=== PATIENT | male | born 1995 | race African-American/Black ===

== ENCOUNTER 2017-02-04 14:06 | Emergency (ER) | payer MEDICAID ==
[2017-02-04 14:10] VITALS: BP 145/87
--- NOTE | 2017-02-04 14:27 | ER Document Report ---
ED Eye Complaint - General Chief Complaint: Eye Pain Stated Complaint: RIGHT EYE IRRITATION Time Seen by Provider: 02/04/17 14:18 Mode of Arrival: Ambulatory Information source: Patient, Relative TRAVEL OUTSIDE OF THE [place] IN LAST 30 DAYS: No - HPI Patient complains to provider of: R eye redness Onset: Yesterday - pt. with c/o R eye red and irritated - Related Data Allergies/Adverse Reactions: No Known Allergies Allergy (Verified 02/04/17 14:09) Past Medical History - General Information source: Patient, Relative - Social History Smoking Status: Current Every Day Smoker Cigarette use (# per day): Yes Chew tobacco use (# tins/day): No Smoking Education Provided: Yes Frequency of alcohol use: None Drug Abuse: None Family History: DM - Past Medical History Cardiac Medical History: Reports: Hx Hypertension Endocrine Medical History: Reports: Hx Diabetes Mellitus Type 1, Hx Diabetes Mellitus Type 2 Renal/ Medical History: Denies: Hx Peritoneal Dialysis Past Surgical History: Reports: Hx Adenoidectomy, Hx Cardiac Surgery, Hx Tonsillectomy - Immunizations Immunizations up to date: Yes Hx Diphtheria, Pertussis, Tetanus Vaccination: Yes Review of Systems - Review of Systems Constitutional: No symptoms reported EENT: See HPI, Eye discharge Cardiovascular: No symptoms reported Respiratory: No symptoms reported -: Yes All other systems reviewed and negative Physical Exam - Vital signs Vitals: Temp Pulse Resp BP Pulse Ox 98.3 F 82 14 145/87 H 100 02/04/17 14:09 02/04/17 14:09 02/04/17 14:09 02/04/17 14:09 02/04/17 14:09 - General General appearance: Appears well In distress: None - HEENT Head: Normocephalic Eyes: Other - R eye with sceral injection; L eye nl Tympanic membrane: Normal Mouth/Lips: Normal Mucous membranes: Normal Pharynx: Normal Course - Vital Signs Vital signs: Temp Pulse Resp BP Pulse Ox 98.3 F 82 14 145/87 H 100 02/04/17 14:09 02/04/17 14:09 02/04/17 14:09 02/04/17 14:09 02/04/17 14:09 Discharge - Discharge Clinical Impression: Conjunctivitis Qualifiers: Conjunctivitis type: acute Acute conjunctivitis type: unspecified Laterality: right Qualified Code(s): H10.31 - Unspecified acute conjunctivitis, right eye Condition: Stable Disposition: HOME, SELF-CARE Additional Instructions: rest, use drops as prescribed, return if worse Prescriptions: Ciprofloxacin HCl [Ciloxan 0.3% Oph Soln 2.5 ml] 1 drop OP DAILY #1 bottle Forms: Return to Work Referrals: DAWSON CEDENO MD [ACTIVE STAFF] - Follow up as needed
== END 2017-02-04 14:25 | disposition home or self-care (01) ==
LOC: ER 14:06
DX: H10.31 Unspecified acute conjunctivitis, right eye (principal); H57.11 Ocular pain, right eye; F17.210 Nicotine dependence, cigarettes, uncomplicated
CPT/HCPCS: 99283

== ENCOUNTER → 2017-06-04 | Outpatient (CLI) | payer OTHER ==
[2017-06-04 10:40] LABS: ANION GAP 12 (5-19); BLOOD UREA NITROGEN 14 mg/dL (7-20); CALCIUM 9.8 mg/dL (8.4-10.2); CARBON DIOXIDE 29 mmol/L (22-30); CHLORIDE 98 mmol/L (98-107); GLUCOSE 270 mg/dL (75-110); POTASSIUM 4.2 mmol/L (3.6-5.0); SODIUM 138.9 mmol/L (137-145)
== END ==
LOC: CCC 09:53
DX: E10.8 Type 1 diabetes mellitus with unspecified complications (principal)
CPT/HCPCS: 36415; 80048; 83036

== ENCOUNTER 2017-07-03 14:56 | Emergency (ER) | payer SELFPAY ==
[2017-07-03] MEDS ORDERED: PROMETHAZINE HCL 25 MG TABLET PO ONE (17:32)
--- NOTE | 2017-07-03 17:40 | ER Document Report ---
ED General - General Chief Complaint: Abdominal Pain Stated Complaint: ABDOMINAL PAIN,VOMITING Time Seen by Provider: 07/03/17 17:27 Mode of Arrival: Ambulatory Information source: Patient Notes: 22-year-old male presents with history of diabetes complaints of nausea vomiting since early this morning. Patient notes he is vomited about 7 times. Denies any fevers or chills. TRAVEL OUTSIDE OF THE [place] IN LAST 30 DAYS: No - HPI Onset: This morning Onset/Duration: Sudden Quality of pain: Cramping Severity: Mild Pain Level: 1 Associated symptoms: Nausea, Vomiting Exacerbated by: Denies Relieved by: Denies Similar symptoms previously: No Recently seen / treated by doctor: No - Related Data Allergies/Adverse Reactions: No Known Allergies Allergy (Verified 07/03/17 14:56) Past Medical History - Social History Smoking Status: Current Every Day Smoker Cigarette use (# per day): Yes Chew tobacco use (# tins/day): No Smoking Education Provided: No Frequency of alcohol use: None Drug Abuse: None Family History: DM Patient has suicidal ideation: No Patient has homicidal ideation: No - Past Medical History Cardiac Medical History: Reports: Hx Hypertension Endocrine Medical History: Reports: Hx Diabetes Mellitus Type 1, Hx Diabetes Mellitus Type 2 Renal/ Medical History: Denies: Hx Peritoneal Dialysis Past Surgical History: Reports: Hx Adenoidectomy, Hx Cardiac Surgery - 18, Hx Tonsillectomy - Immunizations Immunizations up to date: Yes Hx Diphtheria, Pertussis, Tetanus Vaccination: Yes Review of Systems - Review of Systems Notes: REVIEW OF SYSTEMS: CONSTITUTIONAL : Denies fever, chills, or sweats. Denies recent illness. EENT: Denies eye, ear, throat, or mouth pain or symptoms. Denies nasal or sinus congestion or discharge. Denies throat, tongue, or mouth swelling or difficulty swallowing. CARDIOVASCULAR: Denies chest pain. Denies palpitations or racing or irregular heart beat. Denies ankle edema. RESPIRATORY: Denies cough, cold, or chest congestion. Denies shortness of breath, difficulty breathing, or wheezing. GASTROINTESTINAL: Admits nausea vomiting GENITOURINARY: Denies difficulty urinating, painful urination, burning, frequency, blood in urine, or discharge. MUSCULOSKELETAL: Denies back or neck pain or stiffness. Denies joint pain or swelling. SKIN: Denies rash, lesions or sores. HEMATOLOGIC : Denies easy bruising or bleeding. LYMPHATIC: Denies swollen, enlarged glands. NEUROLOGICAL: Denies confusion or altered mental status. Denies passing out or loss of consciousness. Denies dizziness or lightheadedness. Denies headache. Denies weakness or paralysis or loss of use of either side. Denies problems with gait or speech. Denies sensory loss, numbness, or tingling. Denies seizures. PSYCHIATRIC: Denies anxiety or stress. Denies depression, suicidal ideation, or homicidal ideation. ALL OTHER SYSTEMS REVIEWED AND NEGATIVE. Dictation was performed using [employer] recognition software PHYSICAL EXAMINATION: GENERAL: Well-appearing, well-nourished and in no acute distress. HEAD: Atraumatic, normocephalic. EYES: Pupils equal round and reactive to light, extraocular movements intact, sclera anicteric, conjunctiva are normal. ENT: Nares patent, oropharynx clear without exudates. Moist mucous membranes. NECK: Normal range of motion, supple without lymphadenopathy LUNGS: Breath sounds clear to auscultation bilaterally and equal. No wheezes rales or rhonchi. HEART: Regular rate and rhythm without murmurs ABDOMEN: Soft, mild epigastric tenderness no rebound no guarding Musculoskeletal: Normal range of motion, no pitting or edema. No cyanosis. NEUROLOGICAL: Cranial nerves grossly intact. Normal speech, normal gait. Normal sensory, motor exams PSYCH: Normal mood, normal affect. SKIN: Warm, Dry, normal turgor, no rashes or lesions noted. Physical Exam - Vital signs Vitals: Temp Pulse Resp BP Pulse Ox 98.6 F 87 16 140/89 H 100 07/03/17 15:10 07/03/17 15:10 07/03/17 15:10 07/03/17 15:10 07/03/17 15:10 Course - Re-evaluation Re-evalutation: 07/03/17 17:44 Patient does not appear to be in diabetic ketoacidosis, he has been given nausea control will be given IV fluids and otherwise is well-appearing 07/03/17 18:08 Patient's glucose is 180, overall patient looks well is in no distress, patient will be discharged home, 07/03/17 18:11 After performing a Medical Screening Examination, I estimate there is LOW risk for ACUTE APPENDICITIS, BOWEL OBSTRUCTION, ACUTE CHOLECYSTITIS, PERFORATED DIVERTICULITIS, INCARCERATED HERNIA, PANCREATITIS, TESTICULAR TORSION or PERFORATED ULCER, thus I consider the discharge disposition reasonable. Also, there is no evidence or peritonitis, sepsis, or toxicity. I have reevaluated this patient multiple times and no significant life threatening changes are noted. The patient and I have discussed the diagnosis and risks, and we agree with discharging home with close follow-up with the understanding that symptoms and presentations can change. We also discussed returning to the Emergency Department immediately if new or worsening symptoms occur. We have discussed the symptoms which are most concerning (e.g., bloody stool, fever, changing or worsening pain, intractable vomiting - standard verbal up date) that necessitate immediate return. - Vital Signs Vital signs: Temp Pulse Resp BP Pulse Ox 98.6 F 87 16 140/89 H 100 07/03/17 15:10 07/03/17 15:10 07/03/17 15:10 07/03/17 15:10 07/03/17 15:10 Discharge - Discharge Clinical Impression: Abdominal pain Qualifiers: Abdominal location: epigastric Qualified Code(s): R10.13 - Epigastric pain Nausea & vomiting Qualifiers: Vomiting type: unspecified Vomiting Intractability: non-intractable Qualified Code(s): R11.2 - Nausea with vomiting, unspecified Condition: Stable Disposition: HOME, SELF-CARE Instructions: Vomiting ([facility]) Additional Instructions: Follow up with your physician tomorrow for further care or return to the ED IMMEDIATELY if symptoms worsen or new concerns occur. If you cannot afford to follow up with your primary care physician a list of low cost clinics have been provided at the end of your discharge papers as well. Prescriptions: Promethazine HCl [Phenergan 25 mg Tablet] 1 - 2 tab PO Q6H PRN #15 tablet PRN Reason:
[2017-07-03] MEDS ORDERED: METOCLOPRAMIDE HCL ORAL SOLN 10 MG/10 ML UDCUP PO ONE (18:11)
[2017-07-03] MEDS ORDERED: LIDOCAINE 2% VISCOUS SOLN 20 ML UDCUP PO ONE (18:11)
[2017-07-03] MEDS ORDERED: MAG HYDROX/AL HYDROX/SIMETH SUSP 30 ML UDCUP PO ONE (18:11)
[2017-07-03 18:30] VITALS: BP 143/93
== END 2017-07-03 18:29 | disposition home or self-care (01) ==
LOC: ER 14:56
DX: R10.13 Epigastric pain (principal); R11.2 Nausea with vomiting, unspecified; F17.210 Nicotine dependence, cigarettes, uncomplicated; I10 Essential (primary) hypertension
CPT/HCPCS: 99284; 82962; J3490

== ENCOUNTER 2017-07-04 11:44 | Emergency (ER) | payer SELFPAY ==
--- NOTE | 2017-07-04 12:09 | ER Document Report ---
ED Medical Screen (RME) - General Chief Complaint: Abdominal Pain Stated Complaint: ABDOMINAL PAIN,VOMITING,SORE THROAT Time Seen by Provider: 07/04/17 12:07 Mode of Arrival: Ambulatory Information source: Patient TRAVEL OUTSIDE OF THE [place] IN LAST 30 DAYS: No - HPI Patient complains to provider of: abd pain Onset: Yesterday - pt with c/o abd. pain (generalized) for the past 3-4 days. Also states he got dizzy earlier and hit his head but had no LOC. Also sore throat. - Related Data Allergies/Adverse Reactions: No Known Allergies Allergy (Verified 07/04/17 11:47) Past Medical History - Social History Chew tobacco use (# tins/day): No Frequency of alcohol use: None Drug Abuse: None - Past Medical History Cardiac Medical History: Reports: Hx Hypertension Endocrine Medical History: Reports: Hx Diabetes Mellitus Type 1, Hx Diabetes Mellitus Type 2 Renal/ Medical History: Denies: Hx Peritoneal Dialysis Past Surgical History: Reports: Hx Adenoidectomy, Hx Cardiac Surgery - 18, Hx Tonsillectomy - Immunizations Immunizations up to date: Yes Hx Diphtheria, Pertussis, Tetanus Vaccination: Yes Physical Exam - Vital signs Vitals: Temp Pulse Resp BP Pulse Ox 99.0 F 96 16 141/90 H 99 07/04/17 11:57 07/04/17 11:57 07/04/17 11:57 07/04/17 11:57 07/04/17 11:57 Course - Vital Signs Vital signs: Temp Pulse Resp BP Pulse Ox 99.0 F 96 16 141/90 H 99 07/04/17 11:57 07/04/17 11:57 07/04/17 11:57 07/04/17 11:57 07/04/17 11:57
[2017-07-04 12:48] LABS: ABSOLUTE EOSINOPHILS # (AUTO) 0.1 10^3/uL (0.0-0.6); ABSOLUTE LYMPHOCYTES (AUTO) 1.5 10^3/uL (0.5-4.7); ABSOLUTE MONOCYTES (AUTO) 0.3 10^3/uL (0.1-1.4); ABSOLUTE NEUT (AUTO) 1.8 10^3/uL (1.7-8.2); BASOPHILS % (AUTO) 0.5 % (0-2); EOSINOPHILS % (AUTO) 1.6 % (0-6); HEMATOCRIT 48.3 % (37.9-51.0); HEMOGLOBIN 16.1 g/dL (13.5-17.0); LYMPHOCYTES % (AUTO) 41.5 % (13-45); MEAN CORPUSCULAR HEMOGLOBIN 28.5 pg (27.0-33.4); MEAN CORPUSCULAR HGB CONC 33.3 g/dL (32.0-36.0); MEAN CORPUSCULAR VOLUME 86 fl (80-97); MONOCYTES % (AUTO) 6.9 % (3-13); PLATELET COUNT 275 10^3/uL (150-450); RED BLOOD COUNT 5.63 10^6/uL (4.35-5.55); RED CELL DISTRIBUTION WIDTH 13.1 % (11.5-14.0); SEGMENTED NEUTROPHILS % (AUTO) 49.5 % (42-78); TOTAL CELLS COUNTED % (AUTO) 100 %; WHITE BLOOD COUNT 3.6 10^3/uL (4.0-10.5)
[2017-07-04 12:51] LABS: APPEARANCE,URINE CLEAR; BILIRUBIN,URINE NEGATIVE (NEGATIVE); COLOR,URINE YELLOW; GLUCOSE, URINE >=500 mg/dL (NEGATIVE); KETONES,URINE NEGATIVE (NEGATIVE); LEUKOCYTE ESTERASE,URINE NEGATIVE (NEGATIVE); NITRITE,URINE NEGATIVE (NEGATIVE); PROTEIN,URINE NEGATIVE (NEGATIVE); URINE SPECIFIC GRAVITY 1.042; UROBILINOGEN,URINE NEGATIVE mg/dL (<2.0)
[2017-07-04 13:11] LABS: ALANINE AMINOTRANSFERASE 24 U/L (21-72); ALBUMIN 4.3 g/dL (3.5-5.0); ALKALINE PHOSPHATASE 62 U/L (38-126); ANION GAP 8 (5-19); ASPARTATE AMINO TRANSFERASE 14 U/L (17-59); BILIRUBIN,DIRECT 0.4 mg/dL (0.0-0.4); BILIRUBIN,TOTAL 0.6 mg/dL (0.2-1.3); BLOOD UREA NITROGEN 11 mg/dL (7-20); CALCIUM 10.2 mg/dL (8.4-10.2); CARBON DIOXIDE 32 mmol/L (22-30); CHLORIDE 99 mmol/L (98-107); GLUCOSE 272 mg/dL (75-110); LIPASE 31.1 U/L (23-300); POTASSIUM 4.8 mmol/L (3.6-5.0); SODIUM 138.5 mmol/L (137-145)
--- NOTE | 2017-07-04 13:12 | RADIOLOGY REPORT (SQ) ---
EXAM DESCRIPTION: ACUTE ABDOMEN SERIES COMPLETED DATE/TIME: 07/04/2017 12:49 pm REASON FOR STUDY: abd pain COMPARISON: None. NUMBER OF VIEWS: Three views. TECHNIQUE: Frontal chest, supine abdomen and upright/decubitus abdomen radiographic images acquired. LIMITATIONS: None. FINDINGS: CHEST: Lungs clear of infiltrates. FREE AIR: None. No abnormal gas collections. BOWEL GAS PATTERN: Nonobstructive pattern. No dilated loops or air fluid levels. CALCIFICATIONS: No suspicious calcifications. HARDWARE: None in the abdomen. SOFT TISSUES: No gross mass or suggestion of organomegaly. BONES: No acute fracture. No worrisome bone lesions. OTHER: No other significant finding. IMPRESSION: NO RADIOGRAPHIC EVIDENCE FOR ACUTE ABDOMINAL DISEASE. TECHNICAL DOCUMENTATION: JOB ID: [id number] [employer]- All Rights Reserved
[2017-07-04] MEDS ORDERED: NORMAL SALINE 1000 ML 1,000 ML IV ONE ×2 (14:01→14:03)
--- NOTE | 2017-07-04 14:05 | ER Document Report ---
ED General - General Chief Complaint: Abdominal Pain Stated Complaint: ABDOMINAL PAIN,VOMITING,SORE THROAT Time Seen by Provider: 07/04/17 12:07 Mode of Arrival: Ambulatory Information source: Patient Notes: Patient states that he was at work today and developed sore throat, dizziness right-sided chest pain. Patient states that he became dizzy, lost his balance and fell hitting his head. Patient denies any loss of consciousness. Patient states that he also has had epigastric abdominal pain for the past 4 days. Patient states that he had vomiting yesterday although no vomiting today. Patient is diabetic and has not had any of his medications today. TRAVEL OUTSIDE OF THE [place] IN LAST 30 DAYS: No - HPI Onset: Other - Abdominal pain 4 days Onset/Duration: Persistent Pain Level: 3 Associated symptoms: Chest pain, Nonproductive cough, Nausea, Vomiting, Sore throat. denies: Diarrhea, Fever Exacerbated by: Denies Relieved by: Denies Similar symptoms previously: No Recently seen / treated by doctor: Yes - Related Data Allergies/Adverse Reactions: No Known Allergies Allergy (Verified 07/04/17 11:47) Past Medical History - General Information source: Patient - Social History Smoking Status: Current Every Day Smoker Chew tobacco use (# tins/day): No Frequency of alcohol use: None Drug Abuse: None Occupation: Foodservice Lives with: Family Family History: DM Patient has suicidal ideation: No Patient has homicidal ideation: No Endocrine Medical History: Reports: Hx Diabetes Mellitus Type 1 Renal/ Medical History: Denies: Hx Peritoneal Dialysis Past Surgical History: Reports: Hx Adenoidectomy, Hx Cardiac Surgery - 18, Hx Tonsillectomy - Immunizations Immunizations up to date: Yes Hx Diphtheria, Pertussis, Tetanus Vaccination: Yes Review of Systems - Review of Systems Constitutional: No symptoms reported. denies: Fever EENT: No symptoms reported Cardiovascular: Chest pain, Dizziness. denies: Syncope Respiratory: Cough Gastrointestinal: Abdominal pain, Nausea, Vomiting Genitourinary: No symptoms reported. denies: Dysuria Male Genitourinary: No symptoms reported Musculoskeletal: No symptoms reported Skin: No symptoms reported Hematologic/Lymphatic: No symptoms reported Neurological/Psychological: No symptoms reported Physical Exam - Vital signs Vitals: Temp Pulse Resp BP Pulse Ox 99.0 F 96 16 141/90 H 99 07/04/17 11:57 07/04/17 11:57 07/04/17 11:57 07/04/17 11:57 07/04/17 11:57 - General General appearance: Appears well, Alert In distress: None - HEENT Head: Normocephalic Eyes: Normal Conjunctiva: Normal Ears: Normal External canal: Normal Tympanic membrane: Normal Nasal: Normal Pharynx: No: Erythema, Exudate, Tonsillar hypertrophy Neck: Normal, Supple. No: Lymphadenopathy, Meningismus - Respiratory Respiratory status: No respiratory distress Chest status: Pain with cough Breath sounds: Nonproductive cough. No: Rales, Rhonchi, Stridor, Wheezing Chest palpation: Normal - Cardiovascular Rhythm: Regular Heart sounds: S1 appreciated, S2 appreciated Murmur: No - Abdominal Inspection: Normal Distension: No distension Bowel sounds: Normal Tenderness: Tender - epigastric - Back Back: Normal, Nontender. No: CVA tenderness - Extremities General upper extremity: Normal inspection, Normal ROM General lower extremity: Normal inspection, Normal ROM - Neurological Neuro grossly intact: Yes Cognition: Normal Orientation: AAOx4 [place] Coma Scale Eye Opening: Spontaneous [place] Coma Scale Verbal: Oriented Yves Coma Scale Motor: Obeys Commands Yves Coma Scale Total: 15 - Psychological Associated symptoms: Normal affect, Normal mood - Skin Skin Temperature: Warm Skin Moisture: Dry Skin Color: Normal Course - Re-evaluation Re-evalutation: 07/04/17 17:12 Patient states that he is feeling much better. Patient denies any chest pain abdominal pain or nausea or vomiting this time. Reviewed diagnostic test results with patient. Patient encouraged to stay well-hydrated to follow-up with his primary care provider. - Vital Signs Vital signs: Temp Pulse Resp BP Pulse Ox 98.8 F 88 16 138/88 H 100 07/04/17 17:21 07/04/17 17:21 07/04/17 17:21 07/04/17 17:21 07/04/17 17:21 - Laboratory Result Diagrams: 07/04/17 12:15 07/04/17 12:15 Laboratory results interpreted by me: 07/04/17 07/04/17 07/04/17 12:15 12:15 12:15 WBC 3.6 L RBC 5.63 H Carbon Dioxide 32 H Glucose 272 H AST 14 L Urine Glucose (UA) >=500 H 07/04/17 17:13 Labs- Entire Visit 07/04/17 07/04/17 07/04/17 12:15 12:15 12:15 WBC 3.6 L RBC 5.63 H Hgb 16.1 Hct 48.3 MCV 86 MCH 28.5 MCHC 33.3 RDW 13.1 Plt Count 275 Seg Neutrophils % 49.5 Lymphocytes % 41.5 Monocytes % 6.9 Eosinophils % 1.6 Basophils % 0.5 Absolute Neutrophils 1.8 Absolute Lymphocytes 1.5 Absolute Monocytes 0.3 Absolute Eosinophils 0.1 Absolute Basophils 0.0 Sodium 138.5 Potassium 4.8 Chloride 99 Carbon Dioxide 32 H Anion Gap 8 BUN 11 Creatinine 0.66 Est GFR ( Amer) > 60 Est GFR (Non-Af Amer) > 60 Glucose 272 H Calcium 10.2 Total Bilirubin 0.6 Direct Bilirubin 0.4 Neonat Total Bilirubin Not Reportable Neonat Direct Bilirubin Not Reportable Neonat Indirect Bili Not Reportable AST 14 L ALT 24 Alkaline Phosphatase 62 Total Protein 7.0 Albumin 4.3 Lipase 31.1 Urine Color Urine Appearance Urine pH Ur Specific [place] Urine Protein Urine Glucose (UA) Urine Ketones Urine Blood Urine Nitrite Urine Bilirubin Urine Urobilinogen Ur Leukocyte Esterase Urine WBC (Auto) Urine RBC (Auto) Urine Mucus (Auto) Urine Ascorbic Acid Group A Strep Rapid NEGATIVE 07/04/17 12:15 WBC RBC Hgb Hct MCV MCH MCHC RDW Plt Count Seg Neutrophils % Lymphocytes % Monocytes % Eosinophils % Basophils % Absolute Neutrophils Absolute Lymphocytes Absolute Monocytes Absolute Eosinophils Absolute Basophils Sodium Potassium Chloride Carbon Dioxide Anion Gap BUN Creatinine Est GFR ( Amer) Est GFR (Non-Af Amer) Glucose Calcium Total Bilirubin Direct Bilirubin Neonat Total Bilirubin Neonat Direct Bilirubin Neonat Indirect Bili AST ALT Alkaline Phosphatase Total Protein Albumin Lipase Urine Color YELLOW Urine Appearance CLEAR Urine pH 6.0 Ur Specific [place] 1.042 Urine Protein NEGATIVE Urine Glucose (UA) >=500 H Urine Ketones NEGATIVE Urine Blood NEGATIVE Urine Nitrite NEGATIVE Urine Bilirubin NEGATIVE Urine Urobilinogen NEGATIVE Ur Leukocyte Esterase NEGATIVE Urine WBC (Auto) 2 Urine RBC (Auto) 1 Urine Mucus (Auto) RARE Urine Ascorbic Acid NEGATIVE Group A Strep Rapid - Diagnostic Test Radiology reviewed: Reports reviewed Discharge - Discharge Clinical Impression: Dizziness, Dehydration, Sore throat, Elevated blood pressure reading, Cough Abdominal pain Qualifiers: Abdominal location: epigastric Qualified Code(s): R10.13 - Epigastric pain Chest pain Qualifiers: Chest pain type: unspecified Qualified Code(s): R07.9 - Chest pain, unspecified Condition: Stable Disposition: HOME, SELF-CARE Instructions: Abdominal Pain ([facility]), Chest Pain of Unclear Cause ([facility]), Dizziness ([facility]), Intravenous (IV) Fluids ([facility]), Sore Throat ([facility]), Viral Syndrome ([facility]) Additional Instructions: Return immediately for any new or worsening symptoms Followup with your primary care provider, call tomorrow to make a followup appointment Increase oral fluids and stay well-hydrated Prescriptions: Omeprazole Magnesium [Prilosec Otc] 20 mg PO DAILY #15 tablet. Sucralfate [Carafate 1 gm Tablet] 1 gm PO ACHS #40 tablet Forms: Elevated Blood Pressure, Return to Work Referrals: [facility] [Provider Group] - 07/06/17
--- NOTE | 2017-07-04 15:11 | RADIOLOGY REPORT (SQ) ---
EXAM DESCRIPTION: U/S ABDOMEN LIMITED W/O DOP COMPLETED DATE/TIME: 07/04/2017 2:48 pm REASON FOR STUDY: epig pain COMPARISON: None. TECHNIQUE: Dynamic and static grayscale images acquired of the right upper quadrant and recorded on PACS. Additional selected color Doppler and spectral images recorded. LIMITATIONS: Study limited due to acoustical interference from fat or from air in the bowel. FINDINGS: PANCREAS: Obscured. LIVER: No masses. Echotexture normal. LIVER VASCULATURE: Normal directional flow of the main portal vein and hepatic veins. GALLBLADDER: No stones. Normal wall thickness. No pericholecystic fluid. ULTRASOUND-DETECTED PARRISH'S SIGN: Negative. INTRAHEPATIC DUCTS AND COMMON DUCT: CBD and intrahepatic ducts normal caliber. No filling defects. INFERIOR VENA CAVA: Normal flow. AORTA: No aneurysm. RIGHT KIDNEY: Normal size. Normal echogenicity. No solid or suspicious masses. No hydronephrosis. No calcifications. PERITONEAL CAVITY AND RIGHT PLEURAL SPACE: No ascites or effusions. OTHER: No other significant finding. IMPRESSION: NORMAL RIGHT UPPER QUADRANT ULTRASOUND. PANCREAS OBSCURED BY GAS. TECHNICAL DOCUMENTATION: JOB ID: [id number] [employer]- All Rights Reserved
[2017-07-04 17:22] VITALS: BP 138/88
--- NOTE | 2017-07-05 09:07 | EKG REPORT ---
SEVERITY:- NORMAL ECG - SINUS RHYTHM : Confirmed by: Patricia Jimenez 05-Jul-2017 09:07:27
== END 2017-07-04 17:22 | disposition home or self-care (01) ==
LOC: ER 11:44
DX: R42 Dizziness and giddiness (principal); E86.0 Dehydration; R03.0 Elevated blood-pressure reading, without diagnosis of hypertension; R10.13 Epigastric pain; R07.9 Chest pain, unspecified; R11.10 Vomiting, unspecified; R05 Cough; F17.200 Nicotine dependence, unspecified, uncomplicated
CPT/HCPCS: 93005; 99285; 96360; 96361; 36415; 87070; 87880; 83690; 85025; 87077; 80053; 81001; 74022; 76705; 93010; J7030

== ENCOUNTER 2017-11-29 11:45 | Emergency (ER) | payer SELFPAY ==
[2017-11-29] MEDS ORDERED: NORMAL SALINE 1000 ML 1,000 ML IV ONE (12:03)
--- NOTE | 2017-11-29 12:03 | ER Document Report ---
ED GI/ - General Chief Complaint: Nausea/Vomiting Stated Complaint: VOMITING Time Seen by Provider: 11/29/17 11:48 Notes: The patient is a 22-year-old male, past medical history type I diabetic, presents with 4 days of intermittent nausea, vomiting and watery diarrhea. He describes his vomit as a sour taste. Patient took Jacqui-Clayton and felt better. His blood sugar was 81 today. Patient is drinking sugar-free Gatorade. He denies hematemesis, fevers, abdominal pain, urinary symptoms, rash , recent travel or blood in his stool. TRAVEL OUTSIDE OF THE [place] IN LAST 30 DAYS: No - Related Data Allergies/Adverse Reactions: No Known Allergies Allergy (Verified 11/29/17 11:45) Past Medical History - General Information source: Patient - Social History Smoking Status: Unknown if Ever Smoked Family History: DM - Past Medical History Cardiac Medical History: Reports: Hx Hypertension Endocrine Medical History: Reports: Hx Diabetes Mellitus Type 1, Hx Diabetes Mellitus Type 2 Renal/ Medical History: Denies: Hx Peritoneal Dialysis Past Surgical History: Reports: Hx Adenoidectomy, Hx Cardiac Surgery - 16, Hx Tonsillectomy - Immunizations Immunizations up to date: Yes Hx Diphtheria, Pertussis, Tetanus Vaccination: Yes Review of Systems - Review of Systems Notes: REVIEW OF SYSTEMS: CONSTITUTIONAL: -fevers, -chills EENT: -eye pain, -difficulty swallowing, -nasal congestion CARDIOVASCULAR: -chest pain, -syncope. RESPIRATORY: -cough, -SOB GASTROINTESTINAL: -abdominal pain, +nausea, +vomiting, +diarrhea GENITOURINARY: -dysuria, -hematuria MUSCULOSKELETAL: -back pain, -neck pain SKIN: -rash or skin lesions. HEMATOLOGIC: -easy bruising or bleeding. LYMPHATIC: -swollen, enlarged glands. NEUROLOGICAL: -altered mental status or loss of consciousness, -headache, - neurologic symptoms PSYCHIATRIC: -anxiety, -depression. ALL OTHER SYSTEMS REVIEWED AND NEGATIVE. Physical Exam - Vital signs Vitals: Temp Pulse Resp BP Pulse Ox 98.6 F 106 H 18 159/102 H 99 11/29/17 12:03 11/29/17 12:03 11/29/17 12:03 11/29/17 12:03 11/29/17 12:03 - Notes Notes: PHYSICAL EXAMINATION: GENERAL: Well-appearing, well-nourished and in no acute distress. HEAD: Atraumatic, normocephalic. EYES: Pupils equal round and reactive to light, extraocular movements intact, sclera anicteric, conjunctiva are normal. ENT: nares patent, oropharynx clear without exudates. Moist mucous membranes. NECK: Normal range of motion, supple without lymphadenopathy LUNGS: Breath sounds clear to auscultation bilaterally and equal. No wheezes rales or rhonchi. HEART: Tachycardia, regular rhythm. ABDOMEN: Soft, nontender, normoactive bowel sounds. No guarding, no rebound. No masses appreciated. EXTREMITIES: Normal range of motion, no pitting or edema. No cyanosis. NEUROLOGICAL: Cranial nerves grossly intact. Normal speech, normal gait. Normal sensory and motor exams. PSYCH: Normal mood, normal affect. SKIN: Warm, Dry, normal turgor, no rashes or lesions noted. Course - Re-evaluation Re-evalutation: Patient appears very well and he has absolutely no abdominal tenderness. No peritoneal signs on exam. After antiemetics, patient has not had any nausea or vomiting and he is not in DKA. He is hypoglycemic, but asymptomatic. He ate while in the ER because he said he took his insulin and did not eat this morning. Repeat Accu-Chek was 157. Instructed him to continue to stay hydrated , eat after taking his insulin and follow-up with his primary care physician. Given strict return precautions and he understands. - Vital Signs Vital signs: Temp Pulse Resp BP Pulse Ox 98.1 F 103 H 18 151/87 H 100 11/29/17 15:57 11/29/17 15:57 11/29/17 12:03 11/29/17 15:57 11/29/17 15:57 - Laboratory Result Diagrams: 11/29/17 12:15 11/29/17 13:40 Laboratory results interpreted by me: 11/29/17 11/29/17 11/29/17 12:15 12:15 13:40 VBG pCO2 65.4 H* VBG HCO3 32.6 H Carbon Dioxide 33 H Glucose 32 L* POC Glucose Urine Glucose (UA) 50 H Urine Urobilinogen 2.0 H Urine Ascorbic Acid 40 H 11/29/17 15:49 VBG pCO2 VBG HCO3 Carbon Dioxide Glucose POC Glucose 158 H Urine Glucose (UA) Urine Urobilinogen Urine Ascorbic Acid Discharge - Discharge Clinical Impression: Nausea vomiting and diarrhea, Hypoglycemia Condition: Stable Disposition: HOME, SELF-CARE Additional Instructions: Always try to eat after taking her insulin. Zofran for any nausea and follow- up with your primary care physician. VOMITING: Vomiting (or nausea without vomiting) can be caused by many other different problems. It can mean that something's wrong with the stomach, such as ulcers or inflammation or the intestinal tract, such as appendicitis. But it can also be a symptom of a problem that has nothing to do with the stomach or intestines. Vomiting is common with severe headaches, earaches, tonsillitis, and kidney infections, etc. We see it with pneumonia or heart attacks. Drugs can cause nausea and vomiting. Many abdominal problems cause vomiting; for example, gallstones, kidney stones, pancreatitis, and intestinal obstruction ( blocked bowels). In most cases, curing the vomiting depends on fixing the problem that caused it. For temporary relief, we may use an anti-nausea medicine. For home use, we can prescribe suppositories, chewable pills, pills that dissolve in the mouth, or liquid anti-nausea drugs. If the vomiting seems to be caused by a problem in the stomach, acid-suppressing drugs may be prescribed as well. It's important to avoid dehydration. Sip small amounts of clear liquids ( soft drinks, tea, broth, etc) . Try to take fluids frequently even if you are vomiting to prevent dehydration. Take increasing amounts of fluid and when liquids are being consumed successfully, advance to small amounts of bland food (toast, soups, mashed potatoes, etc.) until you are able to resume a regular diet. Avoid aspirin, tobacco, and alcohol. If the vomiting worsens, if the problem that's making you vomit worsens, or if there's evidence of bleeding in the stomach (such as black, tarry stool, or bloody or black vomit), you should return immediately. Also, return if abdominal pain worsens or becomes localized to one area or you develop high fever. Call your doctor if you aren't improved in 24 hours. DIARRHEA, NON-SPECIFIC: Diarrhea means frequent, watery stools. There are many causes. Any problem that keeps the intestinal tract from absorbing water from the stool can lead to diarrhea. A sudden new diarrhea problem is usually caused by a virus, food sensitivity, toxic bacteria, or drugs. In this case, we expect the problem to go away soon. Testing is done only if you seem seriously ill from the diarrhea. If you have chronic diarrhea, or diarrhea that keeps coming back, we need to find out why. Chronic diarrhea can be due to inflammation of the bowels such as Crohn's disease or ulcerative colitis, food sensitivity such as intolerance to lactose or wheat protein, irritable bowel syndrome, and other problems. If your diarrhea is a significant problem but it's not clear why you have it, we' ll refer you to a specialist for further testing. During an episode of diarrhea, drink small amounts (two to six ounces) of clear liquids (soft drinks, sport drinks, herb teas, broth, etc). Take fluids frequently to prevent dehydration. It's usually not a problem to take mild anti- diarrhea medication such as Kaopectate or Pepto-Bismol. As the diarrhea eases, advance to small amounts of bland food (mashed potato, toast) for 24 hours. Call the physician if blood appears in your vomit or stool, if vomiting lasts longer than 24 hours, if the abdominal pain worsens or becomes localized to one area, if you develop high fever, or if you become lightheaded and weak. VIRAL SYNDROME: The physician has diagnosed a viral infection. Viruses not only cause "colds," but can cause many different symptoms including generalized aching, fever, headache, cough, diarrhea, nausea, vomiting, and fatigue. The treatment, for the most part, is simply relief of symptoms. This means that antibiotics are usually not given. Rest, fluids, pain medications and, occasionally, medication for the specific symptoms that are most bothersome will be prescribed. Use good handwashing to avoid passing the virus to others. Shared toys should be cleaned with disinfectant. Clean the toilets, sinks, and counter surfaces in bathrooms. Launder clothing in hot water. Contact the physician if you develop any new or unusual symptoms such as severe headache, stiff neck, high fever, chest pain, productive cough, or shortness of breath. You should be rechecked if you don't see marked improvement within seven to 10 days. INTRAVENOUS (I V) FLUIDS: As part of your care today, you received intravenous (IV) fluids. IV fluids are administered to patients who are dehydrated or to those who have certain chemical (electrolyte) abnormalities that need correcting. ANTINAUSEA MEDICATION: You have been given a medication to suppress nausea and vomiting. This type of medication can be given as a shot, pill, or suppository. It will usually last for many hours. Pills and shots usually last six to eight hours. For the typical illness, only one or two doses of the medication may be necessary. Mild lightheadedness may occur. This type of medicine can cause drowsiness. Do not drive or operate dangerous machinery while under its influence. Do not mix with alcohol. See your doctor at once if you have muscle spasms or tightness, or uncontrollable motions (particularly of the neck, mouth, or jaw). Persistent vomiting or severe lightheadedness should also be evaluated by the physician. FOLLOW-UP CARE: If you have been referred to a physician for follow-up care, call the physician s office for an appointment as you were instructed or within the next two days. If you experience worsening or a significant change in your symptoms, notify the physician immediately or return to the Emergency Department at any time for re-evaluation. Prescriptions: Ondansetron [Zofran Odt 4 mg Tablet] 1 - 2 tab PO Q4H PRN #15 tab.rapdis PRN Reason: For Nausea/Vomiting Forms: Elevated Blood Pressure, Return to Work Referrals: [facility] [Outside] - Follow up as needed
[2017-11-29 12:34] LABS: VENOUS BLOOD BASE EXCESS 4.2 mmol/L; VENOUS BLOOD HCO3 32.6 mmol/L (20-32); VENOUS BLOOD PH 7.32 (7.30-7.42)
[2017-11-29 12:37] LABS: VENOUS BLOOD PCO2 65.4 mmHg (35-63)
[2017-11-29 12:38] LABS: ABSOLUTE EOSINOPHILS # (AUTO) 0.1 10^3/uL (0.0-0.6); ABSOLUTE LYMPHOCYTES (AUTO) 2.2 10^3/uL (0.5-4.7); ABSOLUTE MONOCYTES (AUTO) 0.4 10^3/uL (0.1-1.4); ABSOLUTE NEUT (AUTO) 2.3 10^3/uL (1.7-8.2); BASOPHILS % (AUTO) 0.7 % (0-2); EOSINOPHILS % (AUTO) 1.9 % (0-6); HEMOGLOBIN 14.9 g/dL (13.5-17.0); LYMPHOCYTES % (AUTO) 44.1 % (13-45); MEAN CORPUSCULAR HEMOGLOBIN 28.8 pg (27.0-33.4); MEAN CORPUSCULAR HGB CONC 33.9 g/dL (32.0-36.0); MEAN CORPUSCULAR VOLUME 85 fl (80-97); MONOCYTES % (AUTO) 7.8 % (3-13); PLATELET COUNT 342 10^3/uL (150-450); RED BLOOD COUNT 5.18 10^6/uL (4.35-5.55); RED CELL DISTRIBUTION WIDTH 13.6 % (11.5-14.0); SEGMENTED NEUTROPHILS % (AUTO) 45.5 % (42-78); TOTAL CELLS COUNTED % (AUTO) 100 %; WHITE BLOOD COUNT 4.9 10^3/uL (4.0-10.5)
[2017-11-29 12:42] LABS: APPEARANCE,URINE CLEAR; BILIRUBIN,URINE NEGATIVE (NEGATIVE); COLOR,URINE YELLOW; GLUCOSE, URINE 50 mg/dL (NEGATIVE); KETONES,URINE NEGATIVE (NEGATIVE); LEUKOCYTE ESTERASE,URINE NEGATIVE (NEGATIVE); NITRITE,URINE NEGATIVE (NEGATIVE); PROTEIN,URINE NEGATIVE (NEGATIVE); URINE SPECIFIC GRAVITY 1.029
[2017-11-29 14:15] LABS: ALANINE AMINOTRANSFERASE 27 U/L (21-72); ALBUMIN 4.2 g/dL (3.5-5.0); ALKALINE PHOSPHATASE 49 U/L (38-126); ANION GAP 7 (5-19); ASPARTATE AMINO TRANSFERASE 20 U/L (17-59); BILIRUBIN,DIRECT 0.3 mg/dL (0.0-0.4); BILIRUBIN,TOTAL 0.5 mg/dL (0.2-1.3); BLOOD UREA NITROGEN 13 mg/dL (7-20); CALCIUM 9.5 mg/dL (8.4-10.2); CARBON DIOXIDE 33 mmol/L (22-30); CHLORIDE 103 mmol/L (98-107); POTASSIUM 3.9 mmol/L (3.6-5.0); SODIUM 143.3 mmol/L (137-145); TOTAL PROTEIN 6.9 g/dL (6.3-8.2)
[2017-11-29 14:24] LABS: GLUCOSE 32 mg/dL (75-110)
[2017-11-29 16:07] VITALS: BP 151/87
== END 2017-11-29 16:09 | disposition home or self-care (01) ==
LOC: ER 11:45
DX: R11.2 Nausea with vomiting, unspecified (principal); E10.649 Type 1 diabetes mellitus with hypoglycemia without coma; Z79.4 Long term (current) use of insulin
CPT/HCPCS: 99284; 96360; 36415; 82962; 85025; 80053; 81001; 82803; J7030

== ENCOUNTER 2017-12-30 12:00 | Emergency (ER) | payer SELFPAY ==
[2017-12-30] MEDS ORDERED: ONDANSETRON HCL INJ/PF 4 MG/2 ML SDV IV ONE (12:26)
[2017-12-30] MEDS ORDERED: NORMAL SALINE 1000 ML 1,000 ML IV ONE (12:26)
[2017-12-30] MEDS ORDERED: NORMAL SALINE 1000 ML 1,000 ML IV PRN (12:26)
--- NOTE | 2017-12-30 12:29 | ER Document Report ---
ED Medical Screen (RME) - General Chief Complaint: Vomiting/Diarrhea Stated Complaint: VOMITING,DIARRHEA Time Seen by Provider: 12/30/17 12:25 Notes: 22 years old male with type 1 diabetes, presents today with nausea vomiting since yesterday. Vomited a total of 10 times. No diarrhea but had pulled loose stools. Examination-normal TRAVEL OUTSIDE OF THE [place] IN LAST 30 DAYS: No - Related Data Allergies/Adverse Reactions: No Known Allergies Allergy (Verified 12/30/17 12:00) Past Medical History - Social History Chew tobacco use (# tins/day): No Frequency of alcohol use: None Drug Abuse: None - Past Medical History Cardiac Medical History: Reports: Hx Hypertension Endocrine Medical History: Reports: Hx Diabetes Mellitus Type 1, Hx Diabetes Mellitus Type 2 Renal/ Medical History: Denies: Hx Peritoneal Dialysis Past Surgical History: Reports: Hx Adenoidectomy, Hx Cardiac Surgery - 18, Hx Tonsillectomy - Immunizations Immunizations up to date: Yes Hx Diphtheria, Pertussis, Tetanus Vaccination: Yes Physical Exam - Vital signs Vitals: Temp Pulse Resp BP Pulse Ox 98.8 F 100 18 146/94 H 96 12/30/17 12:12 12/30/17 12:12 12/30/17 12:12 12/30/17 12:12 12/30/17 12:12 Course - Vital Signs Vital signs: Temp Pulse Resp BP Pulse Ox 98.8 F 100 18 146/94 H 96 12/30/17 12:12 12/30/17 12:12 12/30/17 12:12 12/30/17 12:12 12/30/17 12:12
[2017-12-30 14:06] LABS: VENOUS BLOOD BASE EXCESS 3.6 mmol/L; VENOUS BLOOD HCO3 32.1 mmol/L (20-32); VENOUS BLOOD PCO2 63.8 mmHg (35-63); VENOUS BLOOD PH 7.32 (7.30-7.42)
[2017-12-30 14:10] LABS: ALANINE AMINOTRANSFERASE 26 U/L (21-72); ALBUMIN 4.9 g/dL (3.5-5.0); ALKALINE PHOSPHATASE 61 U/L (38-126); ANION GAP 13 (5-19); ASPARTATE AMINO TRANSFERASE 17 U/L (17-59); BILIRUBIN,DIRECT 0.3 mg/dL (0.0-0.4); BILIRUBIN,TOTAL 0.6 mg/dL (0.2-1.3); BLOOD UREA NITROGEN 15 mg/dL (7-20); CALCIUM 10.5 mg/dL (8.4-10.2); CARBON DIOXIDE 31 mmol/L (22-30); CHLORIDE 100 mmol/L (98-107); GLUCOSE 126 mg/dL (75-110); POTASSIUM 4.4 mmol/L (3.6-5.0); SODIUM 143.9 mmol/L (137-145); TOTAL PROTEIN 8.2 g/dL (6.3-8.2)
[2017-12-30 14:19] LABS: APPEARANCE,URINE SLIGHTLY-CLOUDY; BILIRUBIN,URINE NEGATIVE (NEGATIVE); GLUCOSE, URINE NEGATIVE (NEGATIVE); KETONES,URINE NEGATIVE (NEGATIVE); LEUKOCYTE ESTERASE,URINE NEGATIVE (NEGATIVE); NITRITE,URINE NEGATIVE (NEGATIVE); PROTEIN,URINE 30 mg/dL (NEGATIVE); URINE SPECIFIC GRAVITY 1.031
[2017-12-30 14:20] LABS: ABSOLUTE EOSINOPHILS # (AUTO) 0.1 10^3/uL (0.0-0.6); ABSOLUTE LYMPHOCYTES (AUTO) 2.4 10^3/uL (0.5-4.7); ABSOLUTE MONOCYTES (AUTO) 0.3 10^3/uL (0.1-1.4); ABSOLUTE NEUT (AUTO) 1.7 10^3/uL (1.7-8.2); BASOPHILS % (AUTO) 0.5 % (0-2); EOSINOPHILS % (AUTO) 2.3 % (0-6); HEMATOCRIT 48.2 % (37.9-51.0); HEMOGLOBIN 16.3 g/dL (13.5-17.0); MEAN CORPUSCULAR HEMOGLOBIN 28.8 pg (27.0-33.4); MEAN CORPUSCULAR HGB CONC 33.7 g/dL (32.0-36.0); MEAN CORPUSCULAR VOLUME 85 fl (80-97); PLATELET COUNT 319 10^3/uL (150-450); RED BLOOD COUNT 5.65 10^6/uL (4.35-5.55); SEGMENTED NEUTROPHILS % (AUTO) 37.2 % (42-78); TOTAL CELLS COUNTED % (AUTO) 100 %; WHITE BLOOD COUNT 4.5 10^3/uL (4.0-10.5)
[2017-12-30 14:21] LABS: COLOR,URINE YELLOW
[2017-12-30] MEDS ORDERED: ONDANSETRON 4 MG TAB.RAPDIS PO ONE (14:56)
[2017-12-30] MEDS ORDERED: RINGERS SOLUTION,LACTATED 1,000 ML IV PRN (14:57)
--- NOTE | 2017-12-30 15:15 | ER Document Report ---
ED General - General Chief Complaint: Vomiting/Diarrhea Stated Complaint: VOMITING,DIARRHEA Time Seen by Provider: 12/30/17 12:25 Notes: Patient presents with onset of vomiting approximately 8-10 bouts that started 3 AM last night. Patient states he ate a [employer] sandwich and contributes this and concern he had food poisoning. He is a type I diabetic states he has been taking his medications as prescribed. Prior to last night he has not had any recent fevers or illnesses denies any abdominal pain cough congestion dysuria at this time. He states that he developed several bouts of diarrhea this morning nonbloody TRAVEL OUTSIDE OF THE [place] IN LAST 30 DAYS: No - Related Data Allergies/Adverse Reactions: No Known Allergies Allergy (Verified 12/30/17 12:00) Past Medical History - Social History Smoking Status: Current Every Day Smoker Chew tobacco use (# tins/day): No Frequency of alcohol use: None Drug Abuse: None Family History: DM Patient has suicidal ideation: No Patient has homicidal ideation: No - Past Medical History Cardiac Medical History: Reports: Hx Hypertension Endocrine Medical History: Reports: Hx Diabetes Mellitus Type 1, Hx Diabetes Mellitus Type 2 Renal/ Medical History: Denies: Hx Peritoneal Dialysis Past Surgical History: Reports: Hx Adenoidectomy, Hx Cardiac Surgery - 16, Hx Tonsillectomy - Immunizations Immunizations up to date: Yes Hx Diphtheria, Pertussis, Tetanus Vaccination: Yes Review of Systems - Review of Systems Constitutional: No symptoms reported EENT: No symptoms reported Cardiovascular: No symptoms reported Respiratory: No symptoms reported Gastrointestinal: See HPI Genitourinary: No symptoms reported Male Genitourinary: No symptoms reported Musculoskeletal: No symptoms reported Skin: No symptoms reported Hematologic/Lymphatic: No symptoms reported Neurological/Psychological: No symptoms reported Physical Exam - Vital signs Vitals: Temp Pulse Resp BP Pulse Ox 98.8 F 100 18 146/94 H 96 12/30/17 12:12 12/30/17 12:12 12/30/17 12:12 12/30/17 12:12 12/30/17 12:12 - General General appearance: Appears well, Alert - HEENT Head: Normocephalic, Atraumatic Pupils: PERRL - Dry dry oral mucous membranes - Respiratory Respiratory status: No respiratory distress Chest status: Nontender Breath sounds: Normal. No: Rhonchi, Stridor, Wheezing Chest palpation: Normal - Cardiovascular Rhythm: Regular Heart sounds: Normal auscultation Murmur: No - Abdominal Inspection: Normal - Neurological Orientation: AAOx4 - Psychological Associated symptoms: Normal affect Course - Re-evaluation Re-evalutation: 12/30/17 15:12 Patient well-appearing other than mildly dry oral mucous membranes. Labs reveal no signs of DKA. Patient was provided 2 L of fluid. No vomiting or diarrhea in the emergency department. Will be provided Zofran prescription and work excuse for rest over the next 2-3 days. Return precautions provided - Vital Signs Vital signs: Temp Pulse Resp BP Pulse Ox 98.8 F 100 18 146/94 H 96 12/30/17 12:12 12/30/17 12:12 12/30/17 12:12 12/30/17 12:12 12/30/17 12:12 - Laboratory Result Diagrams: 12/30/17 13:33 12/30/17 13:33 Laboratory results interpreted by me: 12/30/17 12/30/17 12/30/17 12:31 13:33 13:33 RBC 5.65 H Seg Neutrophils % 37.2 L Lymphocytes % 54.0 H VBG pCO2 VBG HCO3 Carbon Dioxide 31 H Glucose 126 H POC Glucose 180 H Calcium 10.5 H Urine Protein Urine Urobilinogen Urine Ascorbic Acid 12/30/17 12/30/17 13:33 13:33 RBC Seg Neutrophils % Lymphocytes % VBG pCO2 63.8 H VBG HCO3 32.1 H Carbon Dioxide Glucose POC Glucose Calcium Urine Protein 30 H Urine Urobilinogen 2.0 H Urine Ascorbic Acid 40 H Discharge - Discharge Clinical Impression: Nausea & vomiting Qualifiers: Vomiting type: unspecified Vomiting Intractability: unspecified Qualified Code( s): R11.2 - Nausea with vomiting, unspecified Diarrhea Qualifiers: Diarrhea type: unspecified type Qualified Code(s): R19.7 - Diarrhea, unspecified Disposition: HOME, SELF-CARE Instructions: Antinausea Medication ([facility]), Diarrhea, Nonspecific ([facility]), Vomiting ([facility]), Intravenous (IV) Fluids ([facility]) Additional Instructions: Please return to the emergency department if symptoms are not improving. Prescriptions: Ondansetron [Zofran Odt 4 mg Tablet] 1 tab PO ASDIR PRN #10 tab.rapdis PRN Reason: For Nausea/Vomiting Forms: Return to Work
[2017-12-30 15:50] VITALS: BP 143/99
== END 2017-12-30 15:49 | disposition home or self-care (01) ==
LOC: ER 12:00
DX: R11.2 Nausea with vomiting, unspecified (principal); R19.7 Diarrhea, unspecified; E10.9 Type 1 diabetes mellitus without complications; Z79.899 Other long term (current) drug therapy; F17.200 Nicotine dependence, unspecified, uncomplicated; I10 Essential (primary) hypertension; Z90.49 Acquired absence of other specified parts of digestive tract
CPT/HCPCS: 99284; 96361; 96374; 36415; 82010; 82962; 85025; 80053; 81001; 82803; J2405; J7030

== ENCOUNTER 2018-08-05 19:01 | Emergency (ER) | payer SELFPAY ==
[2018-08-05 19:34] VITALS: BP 161/97
[2018-08-05 21:06] LABS: ABSOLUTE EOSINOPHILS # (AUTO) 0.1 10^3/uL (0.0-0.6); ABSOLUTE LYMPHOCYTES (AUTO) 2.3 10^3/uL (0.5-4.7); ABSOLUTE MONOCYTES (AUTO) 0.3 10^3/uL (0.1-1.4); ABSOLUTE NEUT (AUTO) 3.3 10^3/uL (1.7-8.2); BASOPHILS % (AUTO) 0.6 % (0-2); EOSINOPHILS % (AUTO) 1.5 % (0-6); HEMATOCRIT 49.2 % (37.9-51.0); LYMPHOCYTES % (AUTO) 38.9 % (13-45); MEAN CORPUSCULAR HEMOGLOBIN 28.6 pg (27.0-33.4); MEAN CORPUSCULAR HGB CONC 34.5 g/dL (32.0-36.0); MEAN CORPUSCULAR VOLUME 83 fl (80-97); MONOCYTES % (AUTO) 4.2 % (3-13); PLATELET COUNT 251 10^3/uL (150-450); RED BLOOD COUNT 5.93 10^6/uL (4.35-5.55); RED CELL DISTRIBUTION WIDTH 13.7 % (11.5-14.0); SEGMENTED NEUTROPHILS % (AUTO) 54.8 % (42-78); TOTAL CELLS COUNTED % (AUTO) 100 %
[2018-08-05 21:27] LABS: ALANINE AMINOTRANSFERASE 27 U/L (21-72); ALBUMIN 4.9 g/dL (3.5-5.0); ALKALINE PHOSPHATASE 70 U/L (38-126); ANION GAP 9 (5-19); ASPARTATE AMINO TRANSFERASE 17 U/L (17-59); BILIRUBIN,DIRECT 0.2 mg/dL (0.0-0.4); BILIRUBIN,TOTAL 0.5 mg/dL (0.2-1.3); BLOOD UREA NITROGEN 15 mg/dL (7-20); CALCIUM 10.4 mg/dL (8.4-10.2); CARBON DIOXIDE 34 mmol/L (22-30); CHLORIDE 97 mmol/L (98-107); GLUCOSE 196 mg/dL (75-110); LIPASE 28.3 U/L (23-300); POTASSIUM 4.1 mmol/L (3.6-5.0); SODIUM 139.9 mmol/L (137-145); TOTAL PROTEIN 7.9 g/dL (6.3-8.2)
[2018-08-05] MEDS ORDERED: MAG HYDROX/AL HYDROX/SIMETH SUSP 30 ML UDCUP PO ONE (22:13)
[2018-08-05] MEDS ORDERED: LIDOCAINE 2% VISCOUS SOLN 20 ML UDCUP PO ONE (22:13)
[2018-08-05] MEDS ORDERED: METOCLOPRAMIDE HCL ORAL SOLN 10 MG/10 ML UDCUP PO ONE (22:13)
--- NOTE | 2018-08-05 22:16 | ER Document Report ---
ED General - General Chief Complaint: Upper Abdominal Pain Stated Complaint: ABDOMINAL PAIN Time Seen by Provider: 08/05/18 22:01 Notes: Patient is a 23-year-old male who presents the emergency department with a chief complaint of sharp stomach pains in his epigastric area for the past 2 weeks. He states the pain is in his mid epigastric area and radiates to his ribs. He is a diabetic and is taking NovoLog and Lantus. He admits to not having a prescription, but gets his medication from his mother because he does not have insurance. He states he feels his stomach pain is mainly in the mornings and has some associated nausea.. He then gets up and drink some water and feels better. He he is also here to be checked for a STD's. Denies penile discharge and dysuria He denies any vomiting, diarrhea, or fever. He has had a history of DKA in the past. TRAVEL OUTSIDE OF THE [place] IN LAST 30 DAYS: No - Related Data Allergies/Adverse Reactions: No Known Allergies Allergy (Verified 08/05/18 19:22) Past Medical History - Social History Smoking Status: Current Some Day Smoker Drug Abuse: None Family History: DM Patient has suicidal ideation: No Patient has homicidal ideation: No - Past Medical History Cardiac Medical History: Reports: Hx Hypertension Endocrine Medical History: Reports: Hx Diabetes Mellitus Type 1, Hx Diabetes Lucia litus Type 2 Renal/ Medical History: Denies: Hx Peritoneal Dialysis Past Surgical History: Reports: Hx Adenoidectomy, Hx Cardiac Surgery - 18, Hx To nsillectomy - Immunizations Immunizations up to date: Yes Hx Diphtheria, Pertussis, Tetanus Vaccination: Yes Review of Systems - Review of Systems Notes: REVIEW OF SYSTEMS: CONSTITUTIONAL : Denies recent illness. Denies recent unintentional weight loss. Denies fever, chills, or sweats. EENT: Denies eye, ear, throat, or mouth pain, discharge, or symptoms. Denies nasal or sinus congestion. CARDIOVASCULAR: Denies chest pain. RESPIRATORY: Denies shortness of breath, cough, congestion, difficulty breathing, or wheezing. GASTROINTESTINAL: Denies nausea, vomiting, and diarrhea. Denies abdominal pain. Denies constipation. GENITOURINARY: Denies difficulty urinating, burning, blood in urine, urgency or frequency. MUSCULOSKELETAL: Denies neck and back pain. Denies joint pain or swelling. SKIN: Denies rash, itchiness, or lesions HEMATOLOGIC : Denies easy bruising or bleeding. LYMPHATIC: Denies swollen, painful, enlarged glands. NEUROLOGICAL: Denies no numbness or tingling denies weakness. Denies headache. Denies altered mental status. Denies alteration in speech. PSYCHIATRIC: Denies stress, anxiety, alteration in sleep patterns, or depr ession. All other systems reviewed and negative. Physical Exam - Vital signs Vitals: Temp Pulse Resp BP Pulse Ox 98.6 F 108 H 18 161/97 H 100 08/05/18 19:33 08/05/18 19:33 08/05/18 19:33 08/05/18 19:33 08/05/18 19:33 - Notes Notes: PHYSICAL EXAMINATION: GENERAL: Appears well, healthy, well-nourished, no acute distress. HEAD: Normocephalic, atraumatic. EYES: PERRL, conjunctiva normal, all extraocular movements intact, sclera nonicteric ENT: Moist mucous membranes. NECK: Supple, no noticeable swelling, redness, rash. Normal range of motion. LUNGS: Equal breath sounds bilaterally and clear to auscultation. No wheezes rales or rhonchi. CARDIOVASCULAR: S1-S2, regular rate, regular rhythm. Radial pulses 2+, normal. ABDOMEN: Normoactive bowel sounds. Soft, tender epigastric area, no guarding, no rebound tenderness, and no masses palpated. EXTREMITIES: Normal strength and range of motion, no pitting or edema. No cyanosis. NEUROLOGICAL: Moves all extremities upon command. Strength 5/5 in all extremities. PSYCH: Normal mood, normal affect. SKIN: Warm, dry. No rash, lesions, ulcerations noted. Normal skin turgor. Course - Re-evaluation Re-evalutation: 08/05/18 22:17 Patient's lipase is normal, ruling out pancreatitis. His CBC and chemistries are unremarkable. His blood sugar is 197, not consistent with diabetic ketoacidosis. His CO2 is normal. 08/06/18 00:12 Patient has decided that he would like to be empirically treated with Rocephin and azithromycin for gonorrhea and chlamydia here in the emergency department. He will be called with his results. He needs to get the car he is borrowing home, therefore he is not able to receive his fluids. Verbal discharge instructions were given to the patient. They verbalized understanding. They are stable for discharge. - Vital Signs Vital signs: Temp Pulse Resp BP Pulse Ox 98.6 F 108 H 18 161/97 H 100 08/05/18 19:33 08/05/18 19:33 08/05/18 19:33 08/05/18 19:33 08/05/18 19:33 - Laboratory Result Diagrams: 08/05/18 20:50 08/05/18 20:50 Laboratory results interpreted by me: 08/05/18 08/05/18 08/05/18 20:50 20:50 20:50 RBC 5.93 H Chloride 97 L Carbon Dioxide 34 H Glucose 196 H Calcium 10.4 H Urine Glucose (UA) >=500 H Urine Ketones TRACE H Discharge - Discharge Clinical Impression: Epigastric pain Condition: Stable Disposition: HOME, SELF-CARE Additional Instructions: You were seen today in the emergency department for stomach pains. You have been given Carafate, medication to help with acid reflux. Please take 1 tablet 30 minutes prior to meals. You have also been given a prescription for Pepcid, medication to help with any stomach acid. You may take 1 tablet every 12 hours. You may also buy this medication [id number]. Please follow-up with a primary care provider in regards to this visit. You have also been treated for gonorrhea and chlamydia here in the emergency department. Do not have sex for the next week. You will be called with results. If you have worsening symptoms, or unable to eat or drink, or have symptoms that are worrisome to you, please return to the emergency department. Prescriptions: Famotidine [Pepcid 20 mg Tablet] 20 mg PO BID #60 tablet Sucralfate [Carafate 1 gm Tablet] 1 gm PO ACHS #90 tablet Forms: Return to Work
[2018-08-05] MEDS ORDERED: NORMAL SALINE 1000 ML 1,000 ML IV ONE (22:19)
[2018-08-05 22:37] LABS: APPEARANCE,URINE CLEAR; BILIRUBIN,URINE NEGATIVE (NEGATIVE); COLOR,URINE YELLOW; GLUCOSE, URINE >=500 mg/dL (NEGATIVE); KETONES,URINE TRACE mg/dL (NEGATIVE); LEUKOCYTE ESTERASE,URINE NEGATIVE (NEGATIVE); NITRITE,URINE NEGATIVE (NEGATIVE); PROTEIN,URINE NEGATIVE (NEGATIVE); URINE SPECIFIC GRAVITY 1.031; UROBILINOGEN,URINE NEGATIVE mg/dL (<2.0)
[2018-08-06 00:06] LABS: CHLAM PCR NOT DETECTED (NOT DETECT); GON PCR NOT DETECTED (NOT DETECT)
[2018-08-06] MEDS ORDERED: CEFTRIAXONE INJ 250 MG VIAL IM ONE (00:17)
[2018-08-06] MEDS ORDERED: LIDOCAINE 1% INJ-PF (10 MG/ML) 30 ML SDV INJ ONE (00:17)
[2018-08-06] MEDS ORDERED: AZITHROMYCIN 250 MG TABLET PO ONE (00:17)
== END 2018-08-06 00:55 | disposition home or self-care (01) ==
LOC: ER 19:01
DX: R10.10 Upper abdominal pain, unspecified (principal); F17.200 Nicotine dependence, unspecified, uncomplicated; I10 Essential (primary) hypertension; E11.9 Type 2 diabetes mellitus without complications
CPT/HCPCS: 99284; 96372; 36415; 83690; 85025; 80053; 81001; 87491; 87591; J3490 ×2; J0696

== ENCOUNTER 2018-09-16 13:02 | Emergency (ER) | payer SELFPAY ==
[2018-09-16] MEDS ORDERED: ONDANSETRON HCL INJ/PF 4 MG/2 ML SDV IV ONE (13:10)
[2018-09-16] MEDS ORDERED: RINGERS SOLUTION,LACTATED 1,000 ML IV ONE ×2 (13:10→13:17)
--- NOTE | 2018-09-16 13:20 | ER Document Report ---
ED Medical Screen (RME) - General Chief Complaint: Vomiting Stated Complaint: VOMITING Time Seen by Provider: 09/16/18 13:10 Notes: Patient is a 23-year-old male insulin-dependent diabetic presents to the emergency department for increased episodes of vomiting since Thursday. Patient states he does not have insurance and his glucometer has been broken for "months." States he uses his mother's insulin because she uses the same insulin he does. States he took 15 units of NovoLog prior to arrival to the emergency room because he "knew my sugar was up." ABDOMEN: Soft, non-tender. Non-distended. Bowel sounds present in all 4 quadrants. SKIN: cool, diaphoretic, pale, normal turgor. Charge nurse Emi notified patient's blood sugar glucose 421 in triage, awaiting room placement. I have greeted and performed a rapid initial assessment of this patient. A comprehensive ED assessment and evaluation of the patient, analysis of test results and completion of the medical decision making process will be conducted by additional ED providers. This medical record was dictated with voice recognizing software. There may be grammatical, syntax errors that are unintended. TRAVEL OUTSIDE OF THE [place] IN LAST 30 DAYS: No - Related Data Allergies/Adverse Reactions: No Known Allergies Allergy (Verified 09/16/18 13:03) Past Medical History - Past Medical History Cardiac Medical History: Reports: Hx Hypertension Endocrine Medical History: Reports: Hx Diabetes Mellitus Type 1, Hx Diabetes Mellitus Type 2 Renal/ Medical History: Denies: Hx Peritoneal Dialysis Past Surgical History: Reports: Hx Adenoidectomy, Hx Cardiac Surgery - 16, Hx Tonsillectomy - Immunizations Immunizations up to date: Yes Hx Diphtheria, Pertussis, Tetanus Vaccination: Yes Physical Exam - Vital signs Vitals: Temp Pulse Resp BP Pulse Ox 98.2 F 109 H 16 131/77 H 96 09/16/18 13:08 09/16/18 13:08 09/16/18 13:08 09/16/18 13:08 09/16/18 13:08 Course - Vital Signs Vital signs: Temp Pulse Resp BP Pulse Ox 98.2 F 109 H 16 131/77 H 96 09/16/18 13:08 09/16/18 13:08 09/16/18 13:08 09/16/18 13:08 09/16/18 13:08
[2018-09-16 14:13] LABS: ABSOLUTE EOSINOPHILS # (AUTO) 0.1 10^3/uL (0.0-0.6); ABSOLUTE LYMPHOCYTES (AUTO) 1.1 10^3/uL (0.5-4.7); ABSOLUTE MONOCYTES (AUTO) 0.2 10^3/uL (0.1-1.4); BASOPHILS % (AUTO) 0.7 % (0-2); EOSINOPHILS % (AUTO) 1.7 % (0-6); HEMATOCRIT 50.4 % (37.9-51.0); HEMOGLOBIN 17.3 g/dL (13.5-17.0); LYMPHOCYTES % (AUTO) 31.8 % (13-45); MEAN CORPUSCULAR HEMOGLOBIN 28.6 pg (27.0-33.4); MEAN CORPUSCULAR HGB CONC 34.2 g/dL (32.0-36.0); MEAN CORPUSCULAR VOLUME 83 fl (80-97); MONOCYTES % (AUTO) 5.8 % (3-13); PLATELET COUNT 279 10^3/uL (150-450); RED BLOOD COUNT 6.04 10^6/uL (4.35-5.55); RED CELL DISTRIBUTION WIDTH 14.3 % (11.5-14.0); TOTAL CELLS COUNTED % (AUTO) 100 %; WHITE BLOOD COUNT 3.3 10^3/uL (4.0-10.5)
[2018-09-16 14:18] LABS: VENOUS BLOOD BASE EXCESS -0.5 mmol/L; VENOUS BLOOD HCO3 27.2 mmol/L (20-32); VENOUS BLOOD PCO2 56.3 mmHg (35-63); VENOUS BLOOD PH 7.3 (7.30-7.42)
[2018-09-16 14:20] LABS: APPEARANCE,URINE CLOUDY; BILIRUBIN,URINE NEGATIVE (NEGATIVE); COLOR,URINE YELLOW; GLUCOSE, URINE >=500 mg/dL (NEGATIVE); KETONES,URINE 20 mg/dL (NEGATIVE); LEUKOCYTE ESTERASE,URINE NEGATIVE (NEGATIVE); NITRITE,URINE NEGATIVE (NEGATIVE); PROTEIN,URINE 30 mg/dL (NEGATIVE); URINE SPECIFIC GRAVITY 1.039; UROBILINOGEN,URINE NEGATIVE mg/dL (<2.0)
[2018-09-16 15:21] LABS: ALANINE AMINOTRANSFERASE 15 U/L (21-72); ALBUMIN 4.6 g/dL (3.5-5.0); ALKALINE PHOSPHATASE 68 U/L (38-126); ANION GAP 10 (5-19); ASPARTATE AMINO TRANSFERASE 15 U/L (17-59); BILIRUBIN,DIRECT 0.3 mg/dL (0.0-0.4); BILIRUBIN,TOTAL 0.8 mg/dL (0.2-1.3); BLOOD UREA NITROGEN 13 mg/dL (7-20); CALCIUM 10.6 mg/dL (8.4-10.2); CARBON DIOXIDE 28 mmol/L (22-30); CHLORIDE 100 mmol/L (98-107); GLUCOSE 211 mg/dL (75-110); POTASSIUM 4.4 mmol/L (3.6-5.0); SODIUM 137.6 mmol/L (137-145); TOTAL PROTEIN 7.8 g/dL (6.3-8.2)
[2018-09-16 19:56] VITALS: BP 129/97
--- NOTE | 2018-09-16 23:39 | ER Document Report ---
Entered by ZOEY FLORES SCRIBE 09/16/18 [id number] Acting as scribe for:HAYDE AVINA DO ED General - General Chief Complaint: Vomiting Stated Complaint: VOMITING Time Seen by Provider: 09/16/18 13:10 Mode of Arrival: Ambulatory Information source: Patient Notes: Patient is a 23 year old male with type 1 diabetes presents to the emergency department complaining of vomiting onset 1 week ago. Patient states he has been vomiting consistently for the last week further describing the emesis as purely liquid. 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 He also complains of decreased appetite and abdominal pain while vomiting. He denies any hematemesis, diarrhea, fevers or hematuria. Patient also complains of intermittent left foot cramping. Patient reports no longer having a glucometer and is unsure of what is blood glu cose levels has been. TRAVEL OUTSIDE OF THE [place] IN LAST 30 DAYS: No - Related Data Allergies/Adverse Reactions: No Known Allergies Allergy (Verified 09/16/18 13:03) Past Medical History - General Information source: Patient - Social History Smoking Status: Current Every Day Smoker Cigarette use (# per day): Yes Frequency of alcohol use: Occasional Drug Abuse: Marijuana Family History: DM Patient has suicidal ideation: No Patient has homicidal ideation: No - Past Medical History Cardiac Medical History: Reports: Hx Hypertension Endocrine Medical History: Reports: Hx Diabetes Mellitus Type 1 Past Surgical History: Reports: Hx Adenoidectomy, Hx Cardiac Surgery, Hx Tonsillectomy - Immunizations Immunizations up to date: Yes Hx Diphtheria, Pertussis, Tetanus Vaccination: Yes Review of Systems - Review of Systems Constitutional: No symptoms reported EENT: No symptoms reported Cardiovascular: No symptoms reported Respiratory: No symptoms reported Gastrointestinal: See HPI, Vomiting Genitourinary: No symptoms reported Male Genitourinary: No symptoms reported Musculoskeletal: See HPI Skin: No symptoms reported Hematologic/Lymphatic: No symptoms reported Neurological/Psychological: No symptoms reported -: Yes All other systems reviewed and negative Physical Exam - Vital signs Vitals: Temp Pulse Resp BP Pulse Ox 98.2 F 109 H 16 131/77 H 96 09/16/18 13:08 09/16/18 13:08 09/16/18 13:08 09/16/18 13:08 09/16/18 13:08 Interpretation: Tachycardic - Notes Notes: GENERAL: Alert, interacts well. No acute distress. HEAD: Normocephalic, atraumatic. EYES: Pupils equal, round, and reactive to light. Extraocular movements intact. ENT: Oral mucosa moist, tongue midline. NECK: Full range of motion. Supple. Trachea midline. LUNGS: Clear to auscultation bilaterally, no wheezes, rales, or rhonchi. No respiratory distress. HEART: Mildly tachycardic. No murmurs, gallops, or rubs. ABDOMEN: Soft, non-tender. Non-distended. Bowel sounds present in all 4 quadrants. No guarding, rigidity, or rebound. EXTREMITIES: Moves all 4 extremities spontaneously. Left infiltrated AC IV, there is moderate swelling around IV consistent with infiltration, no signs of infection, no erythema. NEUROLOGICAL: Alert and oriented x3. Normal speech. PSYCH: Normal affect, normal mood. SKIN: Warm, mildly diaphoretic, normal turgor. Course - Re-evaluation Re-evalutation: 09/16/18 19:29 CBC shows low white blood cell count of 3.3, there is hemoconcentration with hem oglobin 17.3, venous blood gas grossly unremarkable, CMP does not show any anion gap, CO2 is normal, there is no evidence of borderline diabetic ketoacidosis, glucose is elevated 211 however this normalized in the emergency department without insulin but receiving fluids, urinalysis does show 20 ketones and glucose of greater than 500, urine is quite concentrated with specific gravity 1.039, no evidence of infection. Patient was given Zofran and is now, tolerating food and drink without difficu lty. Stressed the importance of buying a another glucometer. Patient will be discharged to home in the care of his mother with a prescription for another glucometer and all associated testing devices as well as Zofran. - Vital Signs Vital signs: Temp Pulse Resp BP Pulse Ox 97.3 F 97 16 129/97 H 100 09/16/18 19:48 09/16/18 19:48 09/16/18 19:48 09/16/18 19:48 09/16/18 19:48 - Laboratory Result Diagrams: 09/16/18 13:57 09/16/18 14:37 Laboratory results interpreted by me: 09/16/18 09/16/18 09/16/18 13:57 13:57 14:37 WBC 3.3 L RBC 6.04 H Hgb 17.3 H RDW 14.3 H Glucose 211 H Calcium 10.6 H AST 15 L ALT 15 L Urine Protein 30 H Urine Glucose (UA) >=500 H Urine Ketones 20 H Discharge - Discharge Clinical Impression: Dehydration Vomiting Qualifiers: Vomiting type: unspecified Vomiting Intractability: intractable Nausea presence: with nausea Qualified Code(s): R11.2 - Nausea with vomiting, unspecifi ed Type 1 diabetes Qualifiers: Diabetes mellitus complication status: with hyperglycemia Qualified Code(s): E10.65 - Type 1 diabetes mellitus with hyperglycemia Condition: Stable Disposition: HOME, SELF-CARE Additional Instructions: Drink plenty of fluids. Please check your blood sugar and adjust her insulin accordingly. Please follow your sliding scale. Return to the emergency department if your vomiting will not stop despite Zofran or if your blood sugar remains in the 200s or higher despite taking insulin. Prescriptions: Blood-Glucose Meter [Blood Glucose Monitoring] 1 each ASDIR PRN #1 kit PRN Reason: Ondansetron [Zofran Odt 4 mg Tablet] 1 - 2 tab PO Q4H PRN #15 tab.rapdis PRN Reason: For Nausea/Vomiting Forms: Return to Work I personally performed the services described in the documentation, reviewed and edited the documentation which was dictated to the scribe in my presence, and it accurately records my words and actions.
== END 2018-09-16 19:50 | disposition home or self-care (01) ==
LOC: ER 13:02
DX: R11.2 Nausea with vomiting, unspecified (principal); E86.0 Dehydration; E10.65 Type 1 diabetes mellitus with hyperglycemia; R63.0 Anorexia; R10.9 Unspecified abdominal pain; R25.2 Cramp and spasm; F17.200 Nicotine dependence, unspecified, uncomplicated; I10 Essential (primary) hypertension; R00.0 Tachycardia, unspecified; M79.89 Other specified soft tissue disorders; R61 Generalized hyperhidrosis
CPT/HCPCS: 99283; 96361; 96374; 36415; 82962; 85025; 80053; 81001; 82803; J2405; J7120

== ENCOUNTER 2019-01-04 15:21 | Emergency (ER) | payer SELFPAY ==
[2019-01-04] MEDS ORDERED: ONDANSETRON HCL INJ/PF 4 MG/2 ML SDV IV ONE (17:44)
[2019-01-04] MEDS ORDERED: NORMAL SALINE 1000 ML 1,000 ML IV ONE (17:44)
--- NOTE | 2019-01-04 17:45 | ER Document Report ---
ED Medical Screen (RME) - General Chief Complaint: Abdominal Pain Stated Complaint: ABDOMINAL PAIN Time Seen by Provider: 01/04/19 17:38 Mode of Arrival: Ambulatory Information source: Patient TRAVEL OUTSIDE OF THE [place] IN LAST 30 DAYS: No - HPI Notes: 01/04/19 17:44 23-year-old male medical history of type 1 diabetes presents the ED with fatigue, weakness, nausea vomiting diarrhea for the last 2 to 3 days. Has not checked his blood sugar today, patient states he did check his blood sugar yesterday and it was 189. Patient was sent home from work approximately 2 days ago for not feeling well. Has not followed up with his primary care provider. Denies any fevers or chills, headache, shortness of breath or chest pain. Has not tried any nkjn-rxy-cqwfoht medications. Worse with time, nothing makes better. ROS: Other than noted above, the 12 point review of systems was reviewed with the patient and were negative, all pertinent findings are included in the HPI. PHYSICAL EXAMINATION: Vital signs reviewed. GENERAL: slightl oill , well-nourished and in no acute distress. HEAD: Atraumatic, normocephalic. NECK: Normal range of motion CV: Heart regular rate and rhythm LUNGS: No respiratory distress ABD: generalized abd pain Musculoskeletal: Normal range of motion NEUROLOGICAL: Normal speech PSYCH: Normal mood, normal affect. MDM: Patient seen and examined for rapid initial assessment. Vital signs reviewed. A comprehensive ED assessment and evaluation of the patient, analysis of test results and completion of the medical decision making process will be conducted by additional ED providers. *Note is created using voice recognition software and may contain spelling, syntax or grammatical errors. 01/04/19 17:45 - Related Data Allergies/Adverse Reactions: No Known Allergies Allergy (Verified 01/04/19 15:22) Past Medical History - Social History Frequency of alcohol use: None Drug Abuse: None - Past Medical History Cardiac Medical History: Reports: Hx Hypertension Endocrine Medical History: Reports: Hx Diabetes Mellitus Type 1, Hx Diabetes Mellitus Type 2 Renal/ Medical History: Denies: Hx Peritoneal Dialysis Past Surgical History: Reports: Hx Adenoidectomy, Hx Cardiac Surgery, Hx Tonsillectomy - Immunizations Immunizations up to date: Yes Hx Diphtheria, Pertussis, Tetanus Vaccination: Yes Physical Exam - Vital signs Vitals: Temp Pulse Resp BP Pulse Ox 98.2 F 93 18 120/79 97 01/04/19 16:06 01/04/19 16:06 01/04/19 16:06 01/04/19 16:06 01/04/19 16:06 Course - Vital Signs Vital signs: Temp Pulse Resp BP Pulse Ox 98.2 F 93 18 120/79 97 01/04/19 16:06 01/04/19 16:06 01/04/19 16:06 01/04/19 16:06 01/04/19 16:06
--- NOTE | 2019-01-04 18:20 | RADIOLOGY REPORT (SQ) ---
EXAM DESCRIPTION: CHEST SINGLE VIEW COMPLETED DATE/TIME: 01/04/2019 6:06 pm REASON FOR STUDY: vomiting, epgiastric pain COMPARISON: 02/28/2016 EXAM PARAMETERS: NUMBER OF VIEWS: One view. TECHNIQUE: Single frontal radiographic view of the chest acquired. RADIATION DOSE: NA LIMITATIONS: None. FINDINGS: LUNGS AND PLEURA: No opacities, masses or pneumothorax. No pleural effusion. MEDIASTINUM AND HILAR STRUCTURES: No masses. Contour normal. HEART AND VASCULAR STRUCTURES: Heart normal in size. Normal vasculature. BONES: No acute findings. HARDWARE: None in the chest. OTHER: No other significant finding. IMPRESSION: NO ACUTE RADIOGRAPHIC FINDING IN THE CHEST. TECHNICAL DOCUMENTATION: JOB ID: [id number] [employer]- All Rights Reserved Reading location - IP/workstation name: [email or web address]
[2019-01-04 18:50] LABS: ABSOLUTE EOSINOPHILS # (AUTO) 0.1 10^3/uL (0.0-0.6); ABSOLUTE LYMPHOCYTES (AUTO) 2.2 10^3/uL (0.5-4.7); ABSOLUTE MONOCYTES (AUTO) 0.3 10^3/uL (0.1-1.4); BASOPHILS % (AUTO) 0.5 % (0-2); EOSINOPHILS % (AUTO) 1.8 % (0-6); HEMATOCRIT 49.3 % (37.9-51.0); HEMOGLOBIN 16.4 g/dL (13.5-17.0); MEAN CORPUSCULAR HEMOGLOBIN 28.6 pg (27.0-33.4); MEAN CORPUSCULAR HGB CONC 33.2 g/dL (32.0-36.0); MEAN CORPUSCULAR VOLUME 86 fl (80-97); MONOCYTES % (AUTO) 5.9 % (3-13); PLATELET COUNT 253 10^3/uL (150-450); RED BLOOD COUNT 5.72 10^6/uL (4.35-5.55); SEGMENTED NEUTROPHILS % (AUTO) 43.8 % (42-78); TOTAL CELLS COUNTED % (AUTO) 100 %; WHITE BLOOD COUNT 4.5 10^3/uL (4.0-10.5)
[2019-01-04 18:57] LABS: APPEARANCE,URINE SLIGHTLY-CLOUDY; BILIRUBIN,URINE NEGATIVE (NEGATIVE); COLOR,URINE YELLOW; GLUCOSE, URINE >=500 mg/dL (NEGATIVE); KETONES,URINE NEGATIVE (NEGATIVE); LEUKOCYTE ESTERASE,URINE NEGATIVE (NEGATIVE); NITRITE,URINE NEGATIVE (NEGATIVE); PROTEIN,URINE NEGATIVE (NEGATIVE); URINE SPECIFIC GRAVITY 1.033; UROBILINOGEN,URINE NEGATIVE mg/dL (<2.0)
[2019-01-04 20:04] LABS: ALBUMIN 4.1 g/dL (3.5-5.0); ALKALINE PHOSPHATASE 50 U/L (38-126); ANION GAP 5 (5-19); ASPARTATE AMINO TRANSFERASE 14 U/L (17-59); BILIRUBIN,DIRECT 0.3 mg/dL (0.0-0.4); BILIRUBIN,TOTAL 0.7 mg/dL (0.2-1.3); BLOOD UREA NITROGEN 9 mg/dL (7-20); CALCIUM 9.2 mg/dL (8.4-10.2); CARBON DIOXIDE 32 mmol/L (22-30); CHLORIDE 103 mmol/L (98-107); GLUCOSE 131 mg/dL (75-110); POTASSIUM 4.3 mmol/L (3.6-5.0); TOTAL PROTEIN 6.7 g/dL (6.3-8.2)
--- NOTE | 2019-01-04 20:44 | ER Document Report ---
ED GI/ - General Chief Complaint: Abdominal Pain Stated Complaint: ABDOMINAL PAIN Time Seen by Provider: 01/04/19 17:38 Primary Care Provider: JORJE,SALVADOR [Primary Care Provider] - Follow up as needed Mode of Arrival: Ambulatory Notes: RMEmerson NOTE: 23-year-old male medical history of type 1 diabetes presents the ED with fatigue, weakness, nausea vomiting diarrhea for the last 2 to 3 days. Has not checked his blood sugar today, patient states he did check his blood sugar yesterday and it was 189. Patient was sent home from work approximately 2 days ago for not feeling well. Has not followed up with his primary care provider. Denies any fevers or chills, headache, shortness of breath or chest pain. Has not tried any hufr-lrq-[id number] medications. Worse with time, nothing makes better. MY HPI: Patient complains of over 10 times of diarrhea in the last 2 to 3 days is denying any blood. Patient states he is vomited 4 times today is also denying any blood in his emesis. Patient's denying any dysuria or flank pain. States when he arrived to the emergency room he did have left upper quadrant pain but is denying any pain at this time after treatments in the emergency room. P atient's denying any fevers. Patient states he does follow-up at [facility] for his diabetic needs. TRAVEL OUTSIDE OF THE [place] IN LAST 30 DAYS: No - Related Data Allergies/Adverse Reactions: No Known Allergies Allergy (Verified 01/04/19 15:22) Past Medical History - General Information source: Patient - Social History Smoking Status: Current Every Day Smoker Frequency of alcohol use: None Drug Abuse: None Family History: DM Patient has suicidal ideation: No Patient has homicidal ideation: No - Past Medical History Cardiac Medical History: Reports: Hx Hypertension Endocrine Medical History: Reports: Hx Diabetes Mellitus Type 1, Hx Diabetes Mellitus Type 2 Renal/ Medical History: Denies: Hx Peritoneal Dialysis Past Surgical History: Reports: Hx Adenoidectomy, Hx Cardiac Surgery, Hx Tonsillectomy - Immunizations Immunizations up to date: Yes Hx Diphtheria, Pertussis, Tetanus Vaccination: Yes Review of Systems - Review of Systems Constitutional: denies: Fever EENT: No symptoms reported Cardiovascular: No symptoms reported Respiratory: No symptoms reported Gastrointestinal: See HPI Genitourinary: No symptoms reported Male Genitourinary: No symptoms reported Musculoskeletal: No symptoms reported Skin: No symptoms reported Hematologic/Lymphatic: No symptoms reported Neurological/Psychological: See HPI Physical Exam - Vital signs Vitals: Temp Pulse Resp BP Pulse Ox 98.2 F 93 18 120/79 97 01/04/19 16:06 01/04/19 16:06 01/04/19 16:06 01/04/19 16:06 01/04/19 16:06 - Notes Notes: GENERAL: Alert, interacts well. No acute distress. HEAD: Normocephalic, atraumatic. EYES: Pupils equal, round, and reactive to light. Extraocular movements intact. ENT: Oral mucosa moist, tongue midline. NECK: Full range of motion. Supple. Trachea midline. LUNGS: Clear to auscultation bilaterally, no wheezes, rales, or rhonchi. No respiratory distress. HEART: Regular rate and rhythm. No murmur ABDOMEN: Soft, non-tender. Non-distended. Bowel sounds present in all 4 quadrants. No McBurney's point tenderness, no Clancy sign noted. EXTREMITIES: Moves all 4 extremities spontaneously. No edema, normal radial and dorsalis pedis pulses bilaterally. No cyanosis. BACK: no cervical, thoracic, lumbar midline tenderness. No saddle anesthesia, normal distal neurovascular exam. No CVA tenderness noted bilaterally NEUROLOGICAL: Alert and oriented x3. Normal speech. cranial nerves II through XII grossly intact PSYCH: Normal affect, normal mood. SKIN: Warm, dry, normal turgor. No rashes or lesions noted. Course - Re-evaluation Re-evalutation: 01/04/19 20:43 Laboratory 01/04/19 01/04/19 01/04/19 18:15 18:20 18:20 WBC 4.5 RBC 5.72 H Hgb 16.4 Hct 49.3 MCV 86 MCH 28.6 MCHC 33.2 RDW 14.0 Plt Count 253 Seg Neutrophils % 43.8 Lymphocytes % 48.0 H Monocytes % 5.9 Eosinophils % 1.8 Basophils % 0.5 Absolute Neutrophils 2.0 Absolute Lymphocytes 2.2 Absolute Monocytes 0.3 Absolute Eosinophils 0.1 Absolute Basophils 0.0 Sodium Cancelled Potassium Cancelled Chloride Cancelled Carbon Dioxide Cancelled Anion Gap Cancelled BUN Cancelled Creatinine Cancelled Est GFR ( Amer) Cancelled Est GFR (Non-Af Amer) Cancelled Glucose Cancelled POC Glucose 90 Calcium Cancelled Total Bilirubin Cancelled Direct Bilirubin Cancelled Neonat Total Bilirubin Cancelled Neonat Direct Bilirubin Cancelled Neonat Indirect Bili Cancelled AST Cancelled ALT Cancelled Alkaline Phosphatase Cancelled Total Protein Cancelled Albumin Cancelled Lipase Cancelled Urine Color Urine Appearance Urine pH Ur Specific [place] Urine Protein Urine Glucose (UA) Urine Ketones Urine Blood Urine Nitrite Urine Bilirubin Urine Urobilinogen Ur Leukocyte Esterase Urine WBC (Auto) Urine RBC (Auto) Squamous Epi Cells Auto Urine Mucus (Auto) Urine Ascorbic Acid 01/04/19 01/04/19 18:20 19:30 WBC RBC Hgb Hct MCV MCH MCHC RDW Plt Count Seg Neutrophils % Lymphocytes % Monocytes % Eosinophils % Basophils % Absolute Neutrophils Absolute Lymphocytes Absolute Monocytes Absolute Eosinophils Absolute Basophils Sodium 139.8 Potassium 4.3 Chloride 103 Carbon Dioxide 32 H Anion Gap 5 BUN 9 Creatinine 0.66 Est GFR ( Amer) > 60 Est GFR (Non-Af Amer) > 60 Glucose 131 H POC Glucose Calcium 9.2 Total Bilirubin 0.7 Direct Bilirubin 0.3 Neonat Total Bilirubin Not Reportable Neonat Direct Bilirubin Not Reportable Neonat Indirect Bili Not Reportable AST 14 L ALT 12 Alkaline Phosphatase 50 Total Protein 6.7 Albumin 4.1 Lipase 25.1 Urine Color YELLOW Urine Appearance SLIGHTLY-CLOUDY Urine pH 6.0 Ur Specific [place] 1.033 Urine Protein NEGATIVE Urine Glucose (UA) >=500 H Urine Ketones NEGATIVE Urine Blood LARGE H Urine Nitrite NEGATIVE Urine Bilirubin NEGATIVE Urine Urobilinogen NEGATIVE Ur Leukocyte Esterase NEGATIVE Urine WBC (Auto) 1 Urine RBC (Auto) 6 Squamous Epi Cells Auto 1 Urine Mucus (Auto) FEW Urine Ascorbic Acid NEGATIVE Patient has been treated in the emergency department the [facility] provider with saline solution and Zofran. Upon my assessment of the patient he is denying any abdominal pain. States he has had no further episodes of vomiting or diarrhea in the emergency department. Patient has been able to p.o. fluids with no further episodes of vomiting. Discussed with him at length the importance of [facility]. At this time will discharge with return precautions and follow-up rec ommendations. Verbal discharge instructions given a the bedside and opportunity for questions given. Medication warnings reviewed. Patient is in agreement with this plan and has verbalized understanding of return precautions and the need for primary care follow-up in the next 24-72 hours. This medical record was dictated with voice recognizing software. There may be grammatical, syntax errors that are unintended. - Vital Signs Vital signs: Temp Pulse Resp BP Pulse Ox 98.2 F 93 18 120/79 97 01/04/19 16:06 01/04/19 16:06 01/04/19 16:06 01/04/19 16:06 01/04/19 16:06 - Laboratory Result Diagrams: 01/04/19 18:20 01/04/19 19:30 Laboratory results interpreted by me: 01/04/19 01/04/19 01/04/19 18:20 18:20 19:30 RBC 5.72 H Lymphocytes % 48.0 H Carbon Dioxide 32 H Glucose 131 H AST 14 L Urine Glucose (UA) >=500 H Urine Blood LARGE H Discharge - Discharge Clinical Impression: Nausea vomiting and diarrhea Condition: Stable Disposition: HOME, SELF-CARE Instructions: Intravenous (IV) Fluids ([facility]), Vomiting ([facility]), Diarrhea, Nonspecific ([facility]) Additional Instructions: As we discussed he should follow-up with your primary care provider in the next 24 to 48 hours. Please also use nausea medication as prescribed. Please keep a close eye on your sugars in the next couple of days. Please return to the emergency room for any further concerns. Prescriptions: Ondansetron [Zofran Odt 4 mg Tablet] 2 tab PO Q6 PRN #15 tab.rapdis PRN Reason: For Nausea/Vomiting Forms: Return to Work Referrals: LOCALMD,NO [Primary Care Provider] - Follow up as needed [facility] [Provider Group] - Follow up as needed
[2019-01-04 22:10] VITALS: BP 136/94
--- NOTE | 2019-01-05 14:50 | EKG REPORT ---
SEVERITY:- BORDERLINE ECG - SINUS RHYTHM BORDERLINE RIGHT AXIS DEVIATION BORDERLINE Q WAVES IN INFERIOR LEADS INFERIOR Q WAVES, PROBABLY NORMAL VARIATION : Confirmed by: Patricia Jimenez 05-Jan-2019 14:49:22
== END 2019-01-04 22:09 | disposition home or self-care (01) ==
LOC: ER 15:21
DX: R11.2 Nausea with vomiting, unspecified (principal); R19.7 Diarrhea, unspecified; R53.83 Other fatigue; R53.1 Weakness; R10.12 Left upper quadrant pain; E11.9 Type 2 diabetes mellitus without complications; I10 Essential (primary) hypertension; F17.200 Nicotine dependence, unspecified, uncomplicated
CPT/HCPCS: 93005; 99284; 96361; 96374; 36415; 82962; 83690; 85025; 80053; 81001; 71045; 93010; J2405; J7030

== ENCOUNTER 2019-02-26 16:04 | Emergency (ER) | payer SELFPAY ==
[2019-02-26] MEDS ORDERED: ASPIRIN 81 MG TABLET, CHEWABLE PO ONE (16:30)
--- NOTE | 2019-02-26 16:32 | ER Document Report ---
ED Medical Screen (RME) - General Chief Complaint: Chest Pain Stated Complaint: CHEST PAIN/COUGHING UP BLOOD Time Seen by Provider: 02/26/19 16:26 Mode of Arrival: Ambulatory Information source: Patient Notes: 23-year-old male presented to ED for complaint of chest pain x3 to 4 days. He states he also has rib pains in the left side side. He states he has been coughing a little bit coughing up some blood. He did have a repair 14 years of age. He states he does not smoke but he does use marijuana. He works at [employer] on insulin. He is alert and oriented respirations regular and unlabored speaking in full sentences. I have greeted and performed a rapid initial assessment of this patient. A comprehensive ED assessment and evaluation of the patient, analysis of test results and completion of medical decision making process will be conducted by an additional ED providers. TRAVEL OUTSIDE OF THE [place] IN LAST 30 DAYS: No - Related Data Allergies/Adverse Reactions: No Known Allergies Allergy (Verified 02/26/19 16:25) Past Medical History - Social History Frequency of alcohol use: None - Past Medical History Cardiac Medical History: Reports: Hx Hypertension Endocrine Medical History: Reports: Hx Diabetes Mellitus Type 1, Hx Diabetes Mellitus Type 2 Renal/ Medical History: Denies: Hx Peritoneal Dialysis Past Surgical History: Reports: Hx Adenoidectomy, Hx Cardiac Surgery, Hx Tonsillectomy - Immunizations Immunizations up to date: Yes Hx Diphtheria, Pertussis, Tetanus Vaccination: Yes Physical Exam - Vital signs Vitals: Temp Pulse Resp BP Pulse Ox 98.6 F 98 18 148/78 H 100 02/26/19 16:18 02/26/19 16:18 02/26/19 16:18 02/26/19 16:18 02/26/19 16:18 Course - Vital Signs Vital signs: Temp Pulse Resp BP Pulse Ox 98.6 F 98 18 148/78 H 100 02/26/19 16:18 02/26/19 16:18 02/26/19 16:18 02/26/19 16:18 02/26/19 16:18
[2019-02-26 16:58] LABS: ABSOLUTE EOSINOPHILS # (AUTO) 0.1 10^3/uL (0.0-0.6); ABSOLUTE LYMPHOCYTES (AUTO) 1.5 10^3/uL (0.5-4.7); ABSOLUTE MONOCYTES (AUTO) 0.4 10^3/uL (0.1-1.4); ABSOLUTE NEUT (AUTO) 2.2 10^3/uL (1.7-8.2); BASOPHILS % (AUTO) 0.5 % (0-2); EOSINOPHILS % (AUTO) 3.5 % (0-6); HEMATOCRIT 46.1 % (37.9-51.0); HEMOGLOBIN 15.4 g/dL (13.5-17.0); LYMPHOCYTES % (AUTO) 34.4 % (13-45); MEAN CORPUSCULAR HEMOGLOBIN 28.6 pg (27.0-33.4); MEAN CORPUSCULAR HGB CONC 33.4 g/dL (32.0-36.0); MEAN CORPUSCULAR VOLUME 86 fl (80-97); MONOCYTES % (AUTO) 9.9 % (3-13); PLATELET COUNT 246 10^3/uL (150-450); RED BLOOD COUNT 5.39 10^6/uL (4.35-5.55); RED CELL DISTRIBUTION WIDTH 13.2 % (11.5-14.0); SEGMENTED NEUTROPHILS % (AUTO) 51.7 % (42-78); TOTAL CELLS COUNTED % (AUTO) 100 %; WHITE BLOOD COUNT 4.3 10^3/uL (4.0-10.5)
[2019-02-26 17:05] LABS: INTERNATIONAL RATION (INR) 0.99; PROTHROMBIN TIME 13.1 SEC (11.4-15.4)
[2019-02-26 17:06] LABS: PARTIAL THROMBOPLASTIN TIME 28.7 SEC (23.5-35.8)
--- NOTE | 2019-02-26 17:39 | RADIOLOGY REPORT (SQ) ---
EXAM DESCRIPTION: CHEST 2 VIEWS COMPLETED DATE/TIME: 02/26/2019 4:58 pm REASON FOR STUDY: chest pain COMPARISON: Chest x-ray 01/04/2019, 02/28/2016. EXAM PARAMETERS: NUMBER OF VIEWS: two views TECHNIQUE: Digital Frontal and Lateral radiographic views of the chest acquired. RADIATION DOSE: NA LIMITATIONS: none FINDINGS: LUNGS AND PLEURA: No opacities, masses or pneumothorax. No pleural effusion. MEDIASTINUM AND HILAR STRUCTURES: No masses or contour abnormalities. HEART AND VASCULAR STRUCTURES: Heart normal size. No evidence for failure. BONES: No acute findings. HARDWARE: A patent ductus arteriosus closure device is noted. IMPRESSION: NO ACUTE RADIOGRAPHIC FINDING IN THE CHEST. TECHNICAL DOCUMENTATION: JOB ID: [id number] [employer]- All Rights Reserved Reading location - IP/workstation name: [email or web address]
[2019-02-26 18:09] LABS: ALBUMIN 4.5 g/dL (3.5-5.0); ALKALINE PHOSPHATASE 64 U/L (38-126); ANION GAP 8 (5-19); ASPARTATE AMINO TRANSFERASE 16 U/L (17-59); BILIRUBIN,DIRECT 0.1 mg/dL (0.0-0.4); BILIRUBIN,TOTAL 0.6 mg/dL (0.2-1.3); BLOOD UREA NITROGEN 12 mg/dL (7-20); CALCIUM 9.9 mg/dL (8.4-10.2); CARBON DIOXIDE 33 mmol/L (22-30); CHLORIDE 98 mmol/L (98-107); CREATINE KINASE 198 U/L (55-170); GLUCOSE 254 mg/dL (75-110); POTASSIUM 4.2 mmol/L (3.6-5.0); TOTAL PROTEIN 7.5 g/dL (6.3-8.2)
[2019-02-26 18:20] LABS: CREATINE KINASE MB 1.53 ng/mL (<4.55)
[2019-02-26 18:23] LABS: NT PRO BNP < 11 pg/mL (<125); TROPONIN I < 0.012 ng/mL
--- NOTE | 2019-02-26 18:41 | ER Document Report ---
ED General - General Chief Complaint: Chest Pain Stated Complaint: CHEST PAIN/COUGHING UP BLOOD Time Seen by Provider: 02/26/19 16:26 Mode of Arrival: Ambulatory Notes: Patient is a 23-year-old male with history of asthma that presents to the emergency department for chief complaint of cough and shortness of breath and chest tightness. Patient reports that for the past couple days she is been having cough, with occasional blood-tinged in the sputum, and nasal congestion sinus pressure. He states he has a history of asthma, but has not been on medication for it in some time. He currently does not have an inhaler. He denies any recent fevers, chills, night sweats. No sick contacts that he is aware of. Denies having any body aches or chills. He describes his chest tightness is a pulling across his chest particular when he coughs, but denies any significant chest pain. Past Medical History: Asthma Past Surgical History: PDA surgery Social History: Denies tobacco or alcohol use, but does admit to marijuana use. Family History: Reviewed and noncontributory for presenting illness Allergies: Reviewed, see documented allergy list. REVIEW OF SYSTEMS: Other than noted above, the 12 point review of systems was reviewed with the patient and were negative, all pertinent findings are included in the HPI. PHYSICAL EXAMINATION: Vital signs reviewed, nursing noted reviewed. GENERAL: Well-appearing, well-nourished and in no acute distress. HEAD: Atraumatic, normocephalic. EYES: Eyes appear normal, extraocular movements intact, sclera anicteric, conjunctiva are normal. ENT: nares patent, oropharynx clear without exudates. Moist mucous membranes. NECK: Normal range of motion, supple without lymphadenopathy LUNGS: Lung sounds noted to have trace end expiratory wheezing noted throughout all lung mckeon. No acute respiratory distress. No chest wall tenderness. HEART: Regular rate and rhythm without murmurs ABDOMEN: Soft, nontender, normoactive bowel sounds. No rebound, guarding, or r igidity. No masses appreciated. EXTREMITIES: Nontender, good range of motion, no pitting or edema. NEUROLOGICAL: No focal neurological deficits. Moves all extremities spontaneously Motor and sensory grossly intact on exam. PSYCH: Normal mood, normal affect. SKIN: Warm, Dry, normal turgor, no rashes or lesions noted on exposed skin TRAVEL OUTSIDE OF THE [place] IN LAST 30 DAYS: No - Related Data Allergies/Adverse Reactions: No Known Allergies Allergy (Verified 02/26/19 16:25) Past Medical History - General Information source: Patient - Social History Smoking Status: Never Smoker Frequency of alcohol use: None Family History: DM Patient has suicidal ideation: No Patient has homicidal ideation: No - Past Medical History Cardiac Medical History: Reports: Hx Hypertension Endocrine Medical History: Reports: Hx Diabetes Mellitus Type 1, Hx Diabetes M ellitus Type 2 Renal/ Medical History: Denies: Hx Peritoneal Dialysis Past Surgical History: Reports: Hx Adenoidectomy, Hx Cardiac Surgery, Hx Tonsi llectomy - Immunizations Immunizations up to date: Yes Hx Diphtheria, Pertussis, Tetanus Vaccination: Yes Physical Exam - Vital signs Vitals: Temp Pulse Resp BP Pulse Ox 98.6 F 98 18 148/78 H 100 02/26/19 16:18 02/26/19 16:18 02/26/19 16:18 02/26/19 16:18 02/26/19 16:18 Course - Re-evaluation Re-evalutation: Patient seen and examined vital signs reviewed. Laboratory data and/or imaging were ordered as appropriate for the patient's presenting symptoms and complaint, with consideration of any critical or life threatening conditions that may be associated with their obtained history and exam as noted above. Patient was treated with DuoNeb breathing treatments, and prednisone Results were reviewed when available and demonstrated severely elevated blood sugar, otherwise unremarkable, negative chest x-ray The patient was re-evaluated and was stable and improved after breathing treatments, wheezing resolved Evaluation was most consistent with asthma exacerbation, discharged home with albuterol inhaler, and short course of prednisone advised that his blood sugars could elevate, and to adjust the sliding scale. Results were discussed with the patient at this point, after careful consideration I feel that that patient can be discharged from the emergency dep artment, the patient was educated treatments and reasons to return to the emergency department based on their presumed diagnosis as noted above, they were advised to followup with a primary care physician in 2-3 days. Patient was agreeable to plan of care. *Note is created using voice recognition software and may contain spelling, syntax or grammatical errors. Laboratory 02/26/19 02/26/19 02/26/19 16:41 16:41 16:41 WBC 4.3 RBC 5.39 Hgb 15.4 Hct 46.1 MCV 86 MCH 28.6 MCHC 33.4 RDW 13.2 Plt Count 246 Lymph % (Auto) 34.4 [facility] % (Auto) 9.9 Eos % (Auto) 3.5 Baso % (Auto) 0.5 Absolute Neuts (auto) 2.2 Absolute Lymphs (auto) 1.5 Absolute Monos (auto) 0.4 Absolute Eos (auto) 0.1 Absolute Basos (auto) 0.0 Seg Neutrophils % 51.7 PT 13.1 INR 0.99 APTT 28.7 Sodium 138.7 Potassium 4.2 Chloride 98 Carbon Dioxide 33 H Anion Gap 8 BUN 12 Creatinine 0.67 Est GFR ( Amer) > 60 Est GFR (MDRD) Non-Af > 60 Glucose 254 H Calcium 9.9 Magnesium 1.8 Total Bilirubin 0.6 Direct Bilirubin 0.1 Neonat Total Bilirubin Not Reportable Neonat Direct Bilirubin Not Reportable Neonat Indirect Bili Not Reportable AST 16 L ALT 12 Alkaline Phosphatase 64 Creatine Kinase 198 H CK-MB (CK-2) Troponin I NT-Pro-B Natriuret Pep Total Protein 7.5 Albumin 4.5 TSH 02/26/19 02/26/19 16:41 16:41 WBC RBC Hgb Hct MCV MCH MCHC RDW Plt Count Lymph % (Auto) [facility] % (Auto) Eos % (Auto) Baso % (Auto) Absolute Neuts (auto) Absolute Lymphs (auto) Absolute Monos (auto) Absolute Eos (auto) Absolute Basos (auto) Seg Neutrophils % PT INR APTT Sodium Potassium Chloride Carbon Dioxide Anion Gap BUN Creatinine Est GFR ( Amer) Est GFR (MDRD) Non-Af Glucose Calcium Magnesium Total Bilirubin Direct Bilirubin Neonat Total Bilirubin Neonat Direct Bilirubin Neonat Indirect Bili AST ALT Alkaline Phosphatase Creatine Kinase CK-MB (CK-2) 1.53 Troponin I < 0.012 NT-Pro-B Natriuret Pep < 11 Total Protein Albumin TSH 0.57 Chest X-Ray 02/26/19 16:30 IMPRESSION: NO ACUTE RADIOGRAPHIC FINDING IN THE CHEST. - Vital Signs Vital signs: Temp Pulse Resp BP Pulse Ox 98.6 F 98 18 148/78 H 99 02/26/19 16:18 02/26/19 16:18 02/26/19 16:18 02/26/19 16:18 02/26/19 18:00 - Laboratory Result Diagrams: 02/26/19 16:41 02/26/19 16:41 Laboratory results interpreted by me: 02/26/19 16:41 Carbon Dioxide 33 H Glucose 254 H AST 16 L Creatine Kinase 198 H Discharge - Discharge Clinical Impression: Acute bronchitis with bronchospasm Condition: Stable Disposition: HOME, SELF-CARE Instructions: Bronchitis With Bronchospasm (Wheezing) ([facility]) Prescriptions: Prednisone 40 mg PO DAILY #16 tablet Referrals: [facility] [Provider Group] - Follow up in 3-5 days
[2019-02-26] MEDS ORDERED: PREDNISONE 20 MG TABLET PO ONE (18:47)
[2019-02-26] MEDS ORDERED: IPRATROPIUM/ALBUTEROL 0.5-2.5 MG/3 ML AMPUL NEB ONE (18:47)
--- NOTE | 2019-02-26 19:23 | EKG REPORT ---
SEVERITY:- NORMAL ECG - SINUS RHYTHM : Confirmed by: Marcie Elliott MD 26-Feb-2019 19:22:54
[2019-02-26] MEDS ORDERED: ALBUTEROL SULFATE HFA (90 MCG/PUFF) 8 GM MDI (1 MDI/ER DISP) IH ONE (19:25)
[2019-02-26 20:00] VITALS: BP 136/72
== END 2019-02-26 20:00 | disposition home or self-care (01) ==
LOC: ER 16:04
DX: J21.9 Acute bronchiolitis, unspecified (principal); J45.909 Unspecified asthma, uncomplicated; E11.65 Type 2 diabetes mellitus with hyperglycemia; R04.2 Hemoptysis; R06.02 Shortness of breath; R07.89 Other chest pain; I10 Essential (primary) hypertension
CPT/HCPCS: 93005; 36415; 82553; 82550; 83735; 84443; 85025; 85610; 85730; 80053; 84484; 83880; 71046; 93010; J7512; J3490; J7620; 94640; 99285